=== PATIENT | female | born 1965 | race Caucasian/White ===

== ENCOUNTER 2020-07-01 07:40 | Outpatient (CLI) | payer MEDICARE, SELFPAY ==
--- NOTE | ~2020-07-01 | PE_ITS ---
EXAMINATION: PET skull to mid thigh DATE: 07/01/2020 10:11 INDICATION: Lung cancer TECHNIQUE: Blood glucose level was 97 mg/dL. 9.861 mCi of 18-fluorodeoxyglucose (18-FDG) was administ ered i.v. Low dose computed tomography (CT) images were acquired from the base of the brain to the pr oximal thighs for attenuation correction and anatomic localization. Positron emission tomography (PET ) images were acquired in the same distribution beginning 64 minutes after injection. The dose-length product (DLP) was 243.40 mGy-cm. COMPARISON: None FINDINGS: Head/neck: No abnormal FDG uptake is identified. FDG activity in the oral cavity and vocal cords with out suspicious CT correlate is likely physiologic. Chest: There is a 3.9 x 3.5 cm mass of the left upper lobe with abnormal FDG uptake and SUV max of 16 .1. There there are matted aorticopulmonary lymph nodes with abnormal FDG uptake and SUV max of 3.3. There is mild FDG uptake at the left hilum. Discrete lymph nodes are difficult to identify in the abs ence of intravenous contrast. There is subpleural groundglass opacity in the right lower lobe without abnormal FDG uptake. Mild emphysema is noted. The heart size is normal. There is no pleural effusion or pneumothorax. There is dependent atelectasis of the left lower lobe. Abdomen/pelvis/proximal thighs: Physiologic FDG activity is present in the bowel and urinary tract. N o abnormal FDG uptake is identified. The gallbladder is surgically absent. The liver, spleen, pancrea s, and adrenal glands are normal. There is punctate nonobstructing nephrolithiasis of the left kidney . The right kidney is unremarkable. There is calcified atherosclerosis of the aorta and many of the o ther arteries. No pathologically enlarged abdominal or pelvic lymph nodes are identified. There is no free intraperitoneal gas or evidence of bowel obstruction. Musculoskeletal: No abnormal FDG uptake is identified. There is moderate lumbar spondylosis at L5-S1. IMPRESSION: 1. Left upper lobe mass with abnormal FDG uptake, consistent with history of lung cancer. 2. Matted aortopulmonary window lymph nodes and left hilar lymph nodes with increased FDG uptake, con sistent with metastatic disease. Reviewed, dictated and finalized at location A. IMPRESSION: 1. Left upper lobe mass with abnormal FDG uptake, consistent with history of doyle ng cancer. 2. Matted aortopulmonary window lymph nodes and left hilar lymph nodes with inc reased FDG uptake, consistent with metastatic disease.
[2020-07-01 08:07] LABS: Glucose Point of Care 97 (65-105)
== END 2020-07-01 07:41 | disposition home or self-care (01) ==
LOC: ANHIMG 07:48
PROVIDERS: PCP Family Medicine; Visit Provider Internal Medicine Hematology & Oncology
DX: C34.12 Malignant neoplasm of upper lobe, left bronchus or lung (principal)
CPT/HCPCS: 78815; A9552

== ENCOUNTER 2020-07-15 03:04 | Outpatient (CLI) | payer MEDICARE, SELFPAY ==
[2020-07-15 18:37] LABS: SARS-CoV-2 RNA PCR Negative
== END 2020-07-15 03:05 | disposition home or self-care (01) ==
LOC: ANHCOVIDDT 03:06
PROVIDERS: Visit Provider Surgery
DX: Z01.812 Encounter for preprocedural laboratory examination (principal); Z20.828 Contact with and (suspected) exposure to other viral communicable diseases
CPT/HCPCS: 87635; C9803; U0003

== ENCOUNTER 2020-07-15 08:00 | Outpatient (CLI) | payer MEDICARE, SELFPAY ==
--- NOTE | 2020-07-15 08:20 | ECG_ITS ---
Measurements Intervals [place] Rate: 75 P: 73 AK: 134 QRS: 99 QRSD: 86 T: 72 QT: 366 QTc: 411 Interpretive Statements SINUS RHYTHM RIGHT AXIS DEVIATION DELAYED PRECORDIAL R/S TRANSITION BASELINE WANDER- II, III, AVR, AVL, AVF, V6 BORDERLINE ECG Electronically Signed On 07-15-2020 8:40:17 CDT by Raudel Caraballo D.O.
[2020-07-15 08:29] LABS: Basophils Absolute Auto 0.1 K/mm3 (0.0-0.1); Basophils Percent Auto 0.8 % (0.2-1.2); Eosinophils Absolute Auto 0.3 K/mm3 (0-0.3); Hematocrit 39.3 % (37.0-47.0); Hemoglobin 12.3 g/dL (12.0-15.0); Immature Granulocyte Absolute 0.02 K/mm3 (0.00-0.031); Immature Granulocyte Percent A 0.3 % (0-0.5); Lymphocytes Absolute Auto 1.94 K/mm3 (0.9-3.2); Lymphocytes Percent Auto 25.3 % (18.3-44.2); Mean Corpuscular HGB Conc 31.3 g/dl (32-36); Mean Corpuscular Hemoglobin 31.1 pg (26-34); Mean Corpuscular Volume 99.5 fl (80-100); Mean Platelet Volume 9.3 fl (7.4-10.4); Monocytes Absolute Auto 0.7 K/mm3 (0.1-0.6); Monocytes Percent Auto 9.6 % (2.6-8.5); Neutrophils Absolute Auto 4.6 K/mm3 (1.3-6.7); Platelet Count Result 235 k/mm3 (150-375); Red Blood Count 3.95 M/mm3 (4.2-5.4); Red Cell Distribution Width 13.9 % (11.5-14.5); White Blood Count 7.7 K/mm3 (4.5-10.0)
[2020-07-15 08:39] LABS: INR 0.9; Prothrombin Time 11.5 Seconds (11.1-14.7)
[2020-07-15 08:40] LABS: Partial Thromboplastin Time 25.8 SECONDS (22.3-36.8)
== END 2020-07-15 08:01 | disposition home or self-care (01) ==
PROVIDERS: PCP Family Medicine; Referring Provider Anesthesiology; Visit Provider Surgery
DX: Z01.818 Encounter for other preprocedural examination (principal); C34.12 Malignant neoplasm of upper lobe, left bronchus or lung; Z87.891 Personal history of nicotine dependence
CPT/HCPCS: 36415; 85025; 85610; 85730; 93005

== ENCOUNTER 2020-07-17 01:09 | Day surgery (SDC) | payer MEDICARE, SELFPAY ==
[2020-07-09 15:35] VITALS: BMI 20.3
--- NOTE | ~2020-07-17 | XR_ITS ---
EXAMINATION: XR chest port-a-cath/central DATE: 07/17/2020 08:35 INDICATION: Port catheter insertion TECHNIQUE: frontal view of the chest was obtained. COMPARISON: Chest radiograph dated 09/11/2019 FINDINGS: Interval placement of a right subclavian central venous port catheter with distal tip in the caudal s uperior vena cava. There is undulation in the course of the catheter were passed between the anterior right first rib and clavicle. There is suggestion of very subtle flattening of the catheter at this location. Interval increase in size of a mass in the left lung consistent with progressing primary br onchogenic carcinoma. Remainder of the lungs are clear with no other airspace opacities, pulmonary ed rob, pleural effusion or pneumothorax. The cardiomediastinal silhouette is normal. Visualized bones a nd soft tissues are unremarkable. IMPRESSION: 1. New right internal jugular central venous port catheter with distal tip in the caudal superior natacha a cava. There is suggestion of subtle flattening of the catheter where it passes between the anterior right first rib and clavicle which can predispose towards pinch off with catheter fracture and embol ization. 2. Enlarging mass in the left midlung consistent with progressing primary bronchogenic carcinoma. Reviewed, dictated and finalized at location B. IMPRESSION: 1. New right internal jugular central venous port catheter with distal tip in t he caudal superior vena cava. There is suggestion of subtle flattening of the c atheter where it passes between the anterior right first rib and clavicle which can predispose towards pinch off with catheter fracture and embolization. 2. Enlarging mass in the left midlung consistent with progressing primary bronc hogenic carcinoma.
--- NOTE | ~2020-07-17 | XR_ITS ---
EXAMINATION: XR fl guide central line place DATE: 07/17/2020 08:15 INDICATION: Port catheter insertion TECHNIQUE: One fluoroscopic spot image of the chest were obtained during procedure performed by Dr. Yanique frazier. Radiologist was not present for the imaging or procedure. The amount of fluoroscopy time used d uring this procedure was 0.4 minutes. COMPARISON: 09/11/2019 FINDINGS: Interval placement of a right subclavian central venous port catheter with distal tip at the caudal s uperior vena cava. The catheter has a subtle undulation in course as it passes between the first rib and clavicle but with no evident sharp kink or flattening. Visualized portions of the lungs are clear . IMPRESSION: 1. Fluoroscopy utilized during right subclavian central venous port catheter placement. Reviewed, dictated and finalized at location B. IMPRESSION: 1. Fluoroscopy utilized during right subclavian central venous port catheter pl acement.
[2020-07-17 06:16] VITALS: BP 109/75; PULSE 97; RESP 20; TEMP 36.8; O2SAT 97
[2020-07-17] MEDS: LACTATED RINGERS 1,000 ML 30 ML IV CONT (06:30)
[2020-07-17] MEDS: KETOROLAC 15 MG/ML VIAL (*BKC) IV PUSH (06:34)
--- NOTE | 2020-07-17 06:52 | WPDANESEPPF ---
Anes - Initial Pre Proc Eval Procedure: Operation Date: 07/17/20 07:30 Proposed Procedures p Insertion Angelica Cath - Jacki Crawford MD Date/Time: 07/17/20 06:52 Surgeon: Jacki Crawford MD Pre Op Diagnosis: Left Lung Cancer Patient Data Age: 55 Gender: F Height: 5 ft 5.5 in Weight: 56.25 kg Allergies Allergy/AdvReac Type Severity Reaction Status Date / Time No Known Allergies Allergy Unverified 07/17/20 06:27 Home Medications Medication Instructions Recorded Confirmed Type lamotrigine 100 mg tablet 100 mg PO BID 11/02/19 07/17/20 History quetiapine 200 mg tablet 200 mg PO BID 11/02/19 07/17/20 History quetiapine 400 mg tablet 400 mg PO DAILY tablet 11/02/19 07/17/20 History albuterol sulfate 2 puff INHALATION Q4H PRN 07/09/20 07/17/20 History hydrocodone-acetaminophen 1 tablet PO Q4H PRN 07/09/20 07/17/20 History vit C-vit B0-N-hxiu-elderberry 1 tablet PO DAILY 07/09/20 07/17/20 History [Airborne Vits Zinc Elderberry] Patient hx anesthesia problems: none Family hx anesthesia problems: none PMFSH Past Medical History Medical History Bipolar 1 disorder COPD (chronic obstructive pulmonary disease) Surgical History Surgical History (Updated 07/17/20 @ 06:52 by Krishna Tobin MD) History of cholecystectomy Family History Family History Mother Hypertension Lung cancer Father Lung cancer Social History Social History Smoking packs per day: 1 Smoking cigarettes per day: 20.0 Years smoked: 42 Smoking pack-years: 42.00 Smoking status: Current some day smoker Tobacco type: cigarettes Alcohol intake: current Substance use: current Substance use type: marijuana Gender identity (if verbalized by the patient): Female Spiritual care concerns: No Anes - Eval Final PreProcedure Day of Procedure 07/17/20 06:52 Patient weight: normal Heart: regular rate and rhythm Lungs: decreased breath sounds Airway: Mallampati scale class II Neurological: alert and oriented Last oral intake: >/= 8 hours ASA classification: IV Emergent: no Anesthetic plan: proceed Anesthesia type and monitoring: general GIVS and standard monitoring Informed Consent: The patient's anesthetic plan and its attendant risks and benefits were discussed with the patient/family/POA. Questions were solicited and answers provided to the satisfaction of the patient/family/POA.
--- NOTE | 2020-07-17 07:22 | PM.IMHP ---
H&P: HPI History of Present Illness Date/Time: 07/17/20 07:22 Chief complaint: Left Lung Cancer Narrative: Jonathon Pacheco is a 55 year old female presenting c left lung cancer c mets to lymph nodes. Pt is undergoing chemoradiation per oncology. Pt denies any previous central vein catherterization. Pt to begin chemotx tomorrow. Review of Systems Constitutional: Constitutional: Denies body ache(s), Denies chills, Reports fatigue, Reports lethargy and Reports weakness Eyes: Eyes: Reports no additional eye complaints ENT: Reports Normal hearing present and Denies dysphagia Cardiovascular: Cardiovascular: Denies chest pain and Denies palpitations Respiratory: Respiratory: Denies chest congestion, Reports cough, Reports hemoptysis, Reports dyspnea, Reports dyspnea on exertion and Reports wheezing Gastrointestinal: Gastrointestinal: Denies abdominal pain, Denies bloating, Denies constipation, Denies diarrhea, Denies nausea and Denies vomiting Genitourinary: Genitourinary: Reports no additional female genitourinary complaints Musculoskeletal: Musculoskeletal: Reports no additional musculoskeletal complaints Integumentary/Breasts: Skin/Breast: Reports system reviewed and no additional complaints, except as docu Neurologic: Reports system reviewed and no additional complaints, except as documented Psychiatric: Psychiatric: Reports no additional psychiatric complaints PMFSH Past Medical History Medical History Bipolar 1 disorder COPD (chronic obstructive pulmonary disease) Surgical History Surgical History History of cholecystectomy Family History Family History Mother Hypertension Lung cancer Father Lung cancer Social History Social History Smoking packs per day: 1 Smoking cigarettes per day: 20.0 Years smoked: 42 Smoking pack-years: 42.00 Smoking status: Current some day smoker Tobacco type: cigarettes Alcohol intake: current Substance use: current Substance use type: marijuana Gender identity (if verbalized by the patient): Female Spiritual care concerns: No Meds Home Medications and Allergies Home Medications Medication Instructions Recorded Confirmed Type lamotrigine 100 mg tablet 100 mg PO BID 11/02/19 07/17/20 History quetiapine 200 mg tablet 200 mg PO BID 11/02/19 07/17/20 History quetiapine 400 mg tablet 400 mg PO DAILY tablet 11/02/19 07/17/20 History albuterol sulfate 2 puff INHALATION Q4H PRN 07/09/20 07/17/20 History hydrocodone-acetaminophen 1 tablet PO Q4H PRN 07/09/20 07/17/20 History vit C-vit A4-Y-majj-elderberry 1 tablet PO DAILY 07/09/20 07/17/20 History [Airborne Vits Zinc Elderberry] Allergies Allergy/AdvReac Type Severity Reaction Status Date / Time No Known Allergies Allergy Unverified 07/17/20 06:27 Exam Const: General: no acute distress HENMT: Mouth: Yes moist mucous membranes Eyes: General: appearance normal, both eyes and all related structures Pupils: Equal, round and reactive pupils present EOM: EOMs intact bilaterally Neck: Neck: supple and no JVD Lymphatic: lymphadenopathy not noted Resp: Auscultation: diminished lung sounds Cardio: Rate: regular rate Rhythm: regular rhythm GI: Inspection: non-distended GI Palp: Yes Soft to palpation, No Firmness to palpation present (GI), No Tenderness to palpation present (GI), No Guarding due to palpation present (GI) and No Hernia present Skin: General skin exam: normal color and no rashes or lesions noted Neuro: Speech: normal speech Motor exam (neuro): 5/5 motor strength present throughout Extrem: General: normal to inspection Psych: Mental Status: mental status grossly normal Assessment and Plan Assessment and plan (1) Malignant neoplasm of upper lobe, left b
--- NOTE | 2020-07-17 07:30 | WPDHPUPDATE1 ---
History and Physical Update Update Date/Time: 07/17/20 07:30 History and Physical has been reviewed, including an updated exam of the patient. There are NO changes in the patient's condition. Risks, benefits, and alternatives have been discussed and questions answered. Patient agrees to proceed with procedure.
[2020-07-17] MEDS: ceFAZolin 2 GM/D5W 50 ML 2 GM/50 ML BAG IVPB (07:35)
[2020-07-17] MEDS: BUPIVACAINE/EPINEPHRINE 0.5% 30 ML VIAL INFILTRATE (08:02)
[2020-07-17] MEDS: HEPARIN SODIUM 5,000 UNITS/ML VIAL 5000 UNITS IRRIGATION (08:04)
[2020-07-17] MEDS: HEPARIN SODIUM, PORCINE 10,000 UNITS/10 ML VIAL 10000 UNITS IRRIGATION (08:05)
--- NOTE | 2020-07-17 08:21 | P.OP_ITS ---
Procedure Note - Detailed Date of procedure: 07/17/20 Pre-op diagnosis: Left Lung Cancer Post-op diagnosis: same Procedure performed: placement of right subclavian venous access device under fluroscopic guidance Description of procedure: Patient was brought into the operating room and placed in the supine position. After adequate induction of mac anesthesia, the patient was prepped and draped in normal sterile fashion. Time-out was then done to verify the patient's identity, as well as the procedure being performed. I began by making a small incision in the right chest, I then gained access into the right subclavian vein with an 18 gauge needle. I then placed the guidewire into the vein and confirmed placement via fluoroscopic guidance. I then locally anesthetized the area in the right chest. I then enlarged the incision around the guidewire including making a subcutaneous pocket inferiorly to allow placement of the port itself. I then placed a dilating sheath over the guidewire into the right subclavian vein via sterile Seldinger technique. This was once again done and confirmed via fluoroscopic guidance. I then removed the dilator and the guidewire, now just leaving the sheath in the vein. I then fed the previously flushed catheter into the right subclavian vein under fluoroscopic guidance. At approximately 16 cm, the catheter was noted to be near the atrial caval junction. I then peeled away the sheath, now just leaving the catheter in the vein. I then was able to easily draw and flush from the catheter. The catheter was cut to fit and attached to the port itself. The port was placed into the previously made subcutaneous pocket and sutured in with 0 Ethibond suture. Final fluoroscopic view showed the termination of the catheter at the atrial caval junction with a nice smooth curvature back to the port itself. I was able to gain access to the port with a Stover needle and was able to easily draw and flush from the port. I then flushed 4 cc of a final heparin flush into the port. The incision was closed with 3 0 Vicryl suture in the subcutaneous tissue and the skin was closed with 4 O Monocryl subcuticular suture. Dermabond was then placed on wound. The patient tolerated the procedur e well and will be sent to the recovery room in stable condition. Implants: R SCV VAD Anesthesia: MAC and local Surgeon: Jacki Crawford MD Estimated blood loss (mL): 5 Drains: No Packing: No Pathology: none sent Complications: No immediate complications Condition: stable Disposition: PACU Findings: placement of R SCV VAD via 1st stick
[2020-07-17 08:25] VITALS: BP 113/68; PULSE 89; RESP 20; O2SAT 98
[2020-07-17 08:55] VITALS: BP 113/68; PULSE 89; RESP 20; O2SAT 98
[2020-07-17 09:25] VITALS: BP 110/70; PULSE 88; RESP 14; O2SAT 92
[2020-07-17 09:55] VITALS: BP 105/66; PULSE 82; RESP 14; O2SAT 97
== END 2020-07-17 10:05 | disposition home or self-care (01) ==
PROVIDERS: PCP Family Medicine; Visit Provider Surgery
PROC: (CPT 36561; principal; 2020-07-17 07:30)
DX: C34.12 Malignant neoplasm of upper lobe, left bronchus or lung (principal); C77.9 Secondary and unspecified malignant neoplasm of lymph node, unspecified; J44.9 Chronic obstructive pulmonary disease, unspecified; F31.9 Bipolar disorder, unspecified; F17.210 Nicotine dependence, cigarettes, uncomplicated; F12.90 Cannabis use, unspecified, uncomplicated
CPT/HCPCS: 36561; 77001; C1788; J0690; J1644; J1885; J2250; J3010; J7030; J7120

== ENCOUNTER 2020-07-28 10:53 | Outpatient (CLI) | payer MEDICARE, SELFPAY ==
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
== END 2020-07-28 10:54 | disposition home or self-care (01) ==
LOC: ANHIMG 10:58
PROVIDERS: PCP Family Medicine; Visit Provider Internal Medicine Hematology & Oncology
DX: C34.12 Malignant neoplasm of upper lobe, left bronchus or lung (principal)
CPT/HCPCS: 36598; Q9966

== ENCOUNTER 2020-10-03 13:56 | Inpatient (IN) | payer MEDICARE, SELFPAY ==
[2020-10-03] VITALS (14 sets, daily range): BP systolic 107–144; BP diastolic 61–83; PULSE 100–124; RESP 14–29; TEMP 36–36.2; O2SAT 80–98; BMI 16.6
--- NOTE | ~2020-10-03 | US_ITS ---
EXAMINATION: US venous doppler LE EXAM DATE: 10/04/2020 11:27 INDICATION: Bilateral leg pain. TECHNIQUE: Multiple grayscale, color flow and Doppler images of the lower extremity deep venous syste ms bilaterally were obtained and reviewed. There is no prior study for comparison. FINDINGS: Right side: The right common femoral, femoral and profunda veins demonstrate normal color flow, respi ratory variation, augmentation and compressibility. Compressibility, color flow confirmed within the right popliteal, posterior tibial, peroneal, and greater saphenous veins. Left side: The left common femoral, femoral and profunda veins demonstrate normal color flow, respira tory variation, augmentation and compressibility. Compressibility, color flow confirmed within the l eft popliteal, posterior tibial, peroneal, and greater saphenous veins. IMPRESSION: 1. No lower extremity deep venous thrombosis bilaterally. Reviewed, dictated and finalized at location A. OR SOLUTIONS ENGINEER
--- NOTE | ~2020-10-03 | CT_ITS ---
EXAMINATION: CTA chest PE protocol DATE: 10/03/2020 16:52 INDICATION: Shortness of breath. Low oxygen saturation. History of lung cancer. TECHNIQUE: Computed tomography angiography (CTA) of the chest was performed with 100 mL Omnipaque-350 intravenous contrast timed to evaluate the pulmonary arteries. Coronal maximum intensity projection 3D-reconstructions were created by the technologist. Automated exposure control and iterative reconst ruction technique were employed. Exam dose: 165.73 mGy-cm total exam DLP. COMPARISON: 10/03/2020 portable AP chest 07/01/2028 PET/CT scan FINDINGS: There is diagnostic contrast enhancement of the pulmonary arteries. Pulmonary emboli are identified in the right interlobar and right lower lobe segmental pulmonary jose roberto alber. Peripheral left lower lobe pulmonary emboli are suggested in addition. No thoracic aortic aneurysm or dissection. There is thoracic and abdominal aortic atherosclerotic martha cification as well as great vessel calcification. No hilar or mediastinal mass lesion or lymphadenopathy. Right Port-A-Cath catheter is present, with catheter tip overlying the superior vena cava. Prominent emphysematous changes are noted. Irregular up to 2.7 cm lingular soft tissue mass consistent with known carcinoma of the lung. There are couple focal areas of linear scarring in the posterior medial right upper lobe. Focal tree- in-bud infiltrate in the posterior right lower lobe may represent focal infectious process or postinf ectious residual. There is linear atelectasis or scarring of the middle lobe and to a mild extent the lower lobes. No adrenal mass lesion is noted. Status post cholecystectomy. No suspicious osteolytic or osteoblastic lesions are noted. IMPRESSION: Mild pulmonary embolism involving right lower lobe and probable small peripheral left lo wer lobe emboli Emphysema Lingular carcinoma Right Port-A-Cath There are scattered bilateral areas of atelectasis and/or scarring and a focal tree-in-bud infiltrate in the posterior right lower lobe, which might represent focal infectious process or postinfectious residual Dr. Pedroza telephoned the report to emergency room physician on 10/03/2020 1713 hours. Reviewed, dictated and finalized at [facility]. Reviewed, dictated and finalized at location B. TURBINE ERECTOR IMPRESSION: Mild pulmonary embolism involving right lower lobe and probable sm all peripheral left lower lobe emboli Emphysema Lingular carcinoma Right Port-A-Cath There are scattered bilateral areas of atelectasis and/or scarring and a focal tree-in-bud infiltrate in the posterior right lower lobe, which might represent focal infectious process or postinfectious residual Dr. Pedroza telephoned the report to emergency room physician on 2019 1713 hours.
--- NOTE | ~2020-10-03 | XR_ITS ---
XR chest 1V portable DATE: 10/03/2020 14:50 INDICATION: Shortness of breath; recently diagnosed with cancer. TECHNIQUE: Portable AP chest on 10/03/2020 at 1449 hours COMPARISON: 07/28/2020 portable AP chest 07/17/2020 portable AP chest 09/11/2019 PA and lateral chest FINDINGS: There is an ill-defined irregular soft tissue opacity overlying the left midlung laterally, corresponding to the previously reported mass in similar location on 09/11/2019. The lungs are hyperinflated with relative flattening of the diaphragm, consistent with COPD. Right Port-A-Cath catheter tip overlies the superior vena cava. There appears to be some kinking of t he catheter in the medial infraclavicular area. No pneumothorax. No pleural effusion. No pulmonary co nsolidation. Heart size appears normal. There is aortic arch calcification. Prominent diffuse osteopenia. IMPRESSION: Right Port-A-Cath catheter tip overlying superior vena cava; suggestion of some kinking i n the medial infraclavicular area Defined mass density, lateral left midlung; history of carcinoma of the lung COPD Reviewed, dictated and finalized at location B. CAN STUDIES PROFESSOR IMPRESSION: Right Port-A-Cath catheter tip overlying superior vena cava; sugges tion of some kinking in the medial infraclavicular area Defined mass density, lateral left midlung; history of carcinoma of the lung COPD
[2020-10-03 14:32] LABS: Alveolar/Arterial O2 Gradient 81.4 mmHg; Base Excess ABG 24.8 mEq/l (+/-2.0); Fractional Inspired Oxygen 40 %; HCO3 ABG 58.2 mEq/l (22.0-26.0); Oxyhemoglobin 73.4 % THb (90.0-100.0); PO2 FiO2 Ratio Arterial Blood 1.15 %; Total Hemoglobin 11.6 g/dL (12.0-18.0)
[2020-10-03 14:38] LABS: PCO2 ABG 137.3 mmHg (35.0-45.0); pH ABG 7.245 (7.350-7.450)
[2020-10-03 14:39] LABS: Device NASAL CANNULA; Modified Allen's Test Pass; Oxygen Saturation ABG 68.8 % (95.0-100.0); PO2 ABG 45.9 mmHg (80.0-100.0); Site Drawn LEFT RADIAL
--- NOTE | 2020-10-03 14:43 | PC.NURSE ---
Respiratory at bedside.
[2020-10-03 14:44] LABS: Basophils Percent Auto 0.5 % (0.2-1.2); Eosinophils Percent Auto 0.2 % (0-4.4); Hematocrit 34.2 % (37.0-47.0); Hemoglobin 10.7 g/dL (12.0-15.0); Immature Granulocyte Absolute 0.02 K/mm3 (0.00-0.031); Immature Granulocyte Percent A 0.3 % (0-0.5); Lymphocytes Absolute Auto 0.42 K/mm3 (0.9-3.2); Lymphocytes Percent Auto 6.7 % (18.3-44.2); Mean Corpuscular HGB Conc 31.3 g/dl (32-36); Mean Corpuscular Hemoglobin 34.2 pg (26-34); Mean Corpuscular Volume 109.3 fl (80-100); Mean Platelet Volume 9.4 fl (7.4-10.4); Monocytes Absolute Auto 0.3 K/mm3 (0.1-0.6); Neutrophils Absolute Auto 5.6 K/mm3 (1.3-6.7); Neutrophils Percent Auto 88.3 % (45.5-73.1); Platelet Count Result 191 k/mm3 (150-375); Red Blood Count 3.13 M/mm3 (4.2-5.4); Red Cell Distribution Width 16.5 % (11.5-14.5); White Blood Count 6.3 K/mm3 (4.5-10.0)
[2020-10-03 14:57] LABS: INR 0.8; Prothrombin Time 11.6 Seconds (11.1-14.7)
[2020-10-03 14:58] LABS: Anion Gap 11.99999 mmol/L (8-16); Blood Urea Nitrogen 14 mg/dL (7-17); Calcium 9.9 mg/dL (8.4-10.2); Carbon Dioxide > 40 mmol/L (22-30); Chloride 89 mmol/L (98-107); Estimated CRCL calculation 96 ml/min; Estimated Glomerular Filt Rate > 60; Glucose 136 mg/dL (65-105); Partial Thromboplastin Time 24.1 SECONDS (22.3-36.8); Potassium 4.7 mmol/L (3.4-5.0); Sodium 141 mmol/L (137-145)
[2020-10-03 15:05] LABS: NT Pro B Type Natriuretic Pept 100 PG/ML (5-100)
[2020-10-03 15:08] LABS: Troponin I 0.015 ng/mL (0.000-0.034)
--- NOTE | 2020-10-03 15:19 | ED.SOB ---
HPI - SOB/Dyspnea General Chief Complaint: Shortness of Breath/Dyspnea Stated Complaint: pulse ox low History of Present Illness HPI Narrative: Patient is a 55-year-old female who presents ER with shortness of breath. She went to have her chemotherapy today which she has not had 2 weeks. She received her chemo but it was discovered her blood oxygen level was 70%. Family reports patient has been more sleepy over the last couple weeks and more short of breath. No fever/chills/sweats/productive cough. Denies chest pain or chest pressure. Not typically oxygen dependent. Related Data Home Medications Medication Instructions Recorded Confirmed lamotrigine 100 mg tablet 100 mg PO BID 11/02/19 10/03/20 quetiapine 200 mg tablet 200 mg PO BID 11/02/19 10/03/20 quetiapine 400 mg tablet 400 mg PO DAILY tablet 11/02/19 10/03/20 hydrocodone-acetaminophen 1 tablet PO Q4H PRN 07/09/20 10/03/20 Daily Vitamin See Rx Instructions .ROUTE .COMPLEX 09/04/20 10/03/20 alprazolam [Xanax] 1 mg PO BID PRN 10/03/20 10/03/20 Allergies Allergy/AdvReac Type Severity Reaction Status Date / Time No Known Allergies Allergy Unverified 10/03/20 18:34 Review of Systems Review of Systems: All systems reviewed & are unremarkable except as noted in HPI and below Constitutional: Constitutional: Denies chills, Denies fever(s) and Reports weakness ENT: Denies nasal congestion and Denies sore throat Cardiovascular: Cardiovascular: Denies chest pain, Denies rapid heart rate and Denies radiating jaw, neck or arm pain Respiratory: Respiratory: Denies cough, Reports dyspnea and Denies wheezing Gastrointestinal: Gastrointestinal: Denies abdominal pain, Denies nausea and Denies vomiting Neurologic: Denies headache(s) [facility] Past Medical History Medical History (Updated 10/03/20 @ 23:22 by Brant Todd MD) Anxiety and depression Bipolar 1 disorder COPD (chronic obstructive pulmonary disease) Malignant neoplasm of upper lobe, left bronchus or lung Surgical History Surgical History (Updated 07/22/20 @ 11:12 by Tabitha Saravia MD) History of cholecystectomy Family History Family History Mother Lung cancer Hypertension Father Lung cancer Sibling Ovarian cancer Social History Social History (Updated 10/03/20 @ 21:57 by Lisa Cedillo NP) Social History: The patient is and she is disabled. The patient was smoking 2 packs of cigarettes a day and smoked for 41 years. The patient stated she recently quit smoking. She occasionally has an alcoholic beverage. She uses marijuana but no illicit drugs. Patient is a DNR and her sister knows what she wants. Although she did not say that her sister was officially the power mergers and acquisitions attorney. The patient has 1 son. The patient stated when it is time she will be ready to go to hospice. Smoking packs per day: 2 Smoking cigarettes per day: 40.0 Years smoked: 40 Smoking pack-years: 80.00 Smoking status: Heavy tobacco smoker Tobacco type: cigarettes Alcohol intake: current Substance use: current Substance use type: marijuana Other substance usage details: [employer] Occupation/Education: other Gender identity (if verbalized by the patient): Female Spiritual care concerns: No Exam Narrative: Exam Narrative: GENERAL: Chronically ill-appearing, thin, and falls asleep if not talking. HEAD: Normocephalic, atraumatic. ENT: Mucous membranes moist. CHEST: Clear to auscultation. No respiratory distress. HEART: Tachycardic and regular. Normal peripheral pulses. ABDOMEN: Soft, nontender, nondistended. EXTREMITIES: Normal range of motion. No edema. SKIN: Warm, dry, no rash. NEURO: Alert and oriented x3. PSYCH: Normal mood and affect. Course Course Emergency Course: Admit to the hospitalist service. Patient is consented to try BiPAP. She is a DNR/DNI and if her ABG is worsening and she is failing BiP
--- NOTE | 2020-10-03 15:28 | PC.NURSE ---
RT at bedside for Bi-Pap.
[2020-10-03 15:37] LABS: D Dimer 1.97 ug/mL (<0.48)
--- NOTE | 2020-10-03 16:00 | ECG_ITS ---
Measurements Intervals [place] Rate: 121 P: 84 [place]: 104 QRS: 105 QRSD: 93 T: 51 QT: 284 QTc: 404 Interpretive Statements SINUS TACHYCARDIA WITH SHORT CA INTERVAL RIGHT AXIS DEVIATION DELAYED PRECORDIAL R/S TRANSITION MINIMAL Q WAVES- INFERIOR LEADS BASELINE WANDER- I, II, AVR, AVL, AVF, V2, V6 ABNORMAL ECG Electronically Signed On 10-03-2020 18:06:09 [employer] by Raudel Caraballo D.O.
--- NOTE | 2020-10-03 16:14 | PC.NURSE ---
Pt to CT. Taken off of BiPap and placed on 4L/NC O2 for transfer out of department. Will resume BiPap treatment when pt returns to room.
--- NOTE | 2020-10-03 16:23 | PC.NURSE ---
Pt to CT.
--- NOTE | 2020-10-03 17:30 | PC.NURSE ---
Dr. Anaya at bedside to discuss results with pt and family.
[2020-10-03] MEDS: HEPARIN SODIUM 5,000 UNITS/ML VIAL 4500 UNITS IV PUSH (17:36)
[2020-10-03] MEDS: HEPARIN SOD/D5W 100 UNITS/ML 25,000 UNITS/250 ML BAG 10 UNITS IV CONT (17:38)
--- NOTE | 2020-10-03 18:38 | PC.NURSE ---
No bed assignment yet per Cecilio SuarezJustice Court Judge
--- NOTE | 2020-10-03 18:40 | PC.NURSE ---
Pt resting on stretcher. Awaiting bed assignment for admission. Family at bedside. Call light within reach.
--- NOTE | 2020-10-03 20:35 | PC.NURSE ---
This patient, Jonathon Pacheco, was admitted to IMU Room 203-01. Patient/family oriented to hospital policies and general routines including ID bracelet, bed and alarms, visiting hours, pain management, procedures, bathroom and other care routines, personal items, smoking policy, room service/diet, and visiting hours. Information on how to activate the Rapid Response Team has been discussed. Patient/Family are encouraged to report perceived risks to care and to ask questions if they do not understand what they are told or what they should do.
--- NOTE | 2020-10-03 21:45 | PM.IMHP ---
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 The patient completed a course of definite chemo radiation therapy between 07/15/2020 and 08/28/2020. The patient has completed the radiation and is still undergoing chemotherapy. The patient believes that she just has 1 more chemotherapy treatment. She does have a Port-A-Cath. The patient went chemotherapy today but became hypoxic. The patient has chronic hypoxia and wears oxygen between 2 and 3 L at home. The patient had a portable oxygen tank that she plugs into her car and then she blocks into the wall. She said she ran out of battery and she plugged into her car but then when she got to chemotherapy she plugged into the wall which she had ran out of oxygen and they felt that she may just be having a hard time recovering. So the patient was taken to the emergency room. She said she had been complaining of having some leg pains in the past but never had any history of having any DVTs in the past. Her CTA was noted to have a mild pulmonary embolism involving the right lower lobe and probable small peripheral left lower lobe emboli. The patient was started on a heparin drip. She is on her routine oxygen that she takes at home 2-3 L. She initially was on a BiPAP machine but could not tolerated. The patient stated that she has a DNR she does not want to be put on any ventilators or any machines. The patient is tolerating her regular oxygen well and she is satting in the lower 90 percentile. On her chest x-ray looks like the Port-A-Cath tip overlying superior vena cava suggestion of some kinking in the medial infraclavicular area. Define mass density, lateral left midlung history of carcinoma of the lung. 10.7 and 34.2 which is her baseline. D-dimer noted to be 1.97. Initially her ABGs pH was 7.245 CO2 was 137.3 anterior O2 was 45.9. Patient was placed in inpatient status and admission date of service is 10/03/2020. Review of Systems Review of Systems: All systems reviewed & are unremarkable except as noted in HPI and below Constitutional: Constitutional: Reports as per HPI and Reports no additional constitutional complaints Eyes: Eyes: Reports as per HPI and Reports no additional eye complaints ENT: Reports system reviewed and no additional complaints, except as documented and Reports Normal hearing present Cardiovascular: Cardiovascular: Reports no additional cardiovascular complaints Respiratory: Respiratory: Reports no additional respiratory complaints and Reports no additional respiratory complaints Gastrointestinal: Gastrointestinal: Reports as per HPI and Reports no additional gastrointestinal complaints Musculoskeletal: Musculoskeletal: Reports no additional musculoskeletal complaints Integumentary/Breasts: Skin/Breast: Reports system reviewed and no additional complaints, except as docu and Reports as per HPI Neurologic: Reports system reviewed and no additional complaints, except as documented, Reports as per HPI and Reports Normal hearing present Psychiatric: Psychiatric: Reports no additional psychiatric complaints and Reports as per HPI Endocrine: Endocrine: Reports no additional endocrine complaints Hematologic/Lymphatic: Hematologic/Lymphatic: Reports no additional hematologic/lymphatic complaints Allergic/Immunologic: Allergic/Immunologic: Reports no additional allergic/immunologic complaints [facility] Past Medical History Medical History (Updated 10/03/20 @ 22:02 by Lisa Cedillo NP) Anxiety and depression Bipolar 1 disorder COPD (chronic obstructive pulmonary disease) Malignant neoplasm of upper lobe, left bronchus or lung Surgical History Surgical Histor
[2020-10-04] VITALS (13 sets, daily range): BP systolic 84–137; BP diastolic 46–82; PULSE 85–120; RESP 16–22; TEMP 36–37; O2SAT 91–98
--- NOTE | 2020-10-04 | ECHO_ITS ---
Patient Info Name: Jonathon Pacheco Age: 55 years : 1965 Gender: Female Ht: 65 in Wt: 101 lbs BSA: 1.44 m2 HR: 99 bpm BP: 137 / 82 mmHg Heart Rhythm: Sinus Rhythm Technical Quality: Good Exam Date: 10/04/2020 8:12 AM Exam Location: [facility] Pulmonary Exam Room: Patient Status: Inpatient Admit Date: 10/03/2020 Staff Ordering Physician: Lisa Cedillo NP Service Bar Cashier: Mariana Mendez RDCS Attending Provider: Yana Manuel MD Referring Physician: Nguyen CHAUHAN; Exam Type: CA echo doppler color flow Study Info Indications - pe Complete two-dimensional, color flow and Doppler transthoracic echocardiogram is performed. Summary 1. Complete two-dimensional, color flow and Doppler transthoracic echocardiogram is performed. 2. There is mild concentric increased left ventricular wall thickness. 3. Left ventricular systolic function is normal, estimated at 65-70%. 4. Right ventricular chamber dimension is mildly enlarged. 5. Interventricular septal flattening typical of right ventricular pressure overload. Left Ventricle Left ventricular chamber dimension is normal. Left ventricular systolic function is normal, estimated at 65-70%. There is mild concentric increased left ventricular wall thickness. The left ventricular diastolic function is grade I diastolic dysfunction. Right Ventricle Right ventricular chamber dimension is mildly enlarged. Left Atria Left atrial chamber dimension is normal. Right Atria Right atrial chamber dimension is normal. Aortic Valve The aortic valve is normal. Pulmonic Valve The pulmonic valve is normal. There is mild pulmonic regurgitation. Mitral Valve The mitral valve has normal leaflets. Tricuspid Valve The tricuspid valve leaflets are normal. There is mild tricuspid valve regurgitation. Pericardium/Pleural The pericardium appears normal. Aorta The aortic root size at the sinus of Valsalva is normal. Left Ventricular Outflow Tract Name Value Normal LVOT 2D LVOT Diameter 2.0 cm Pulmonic Valve Name Value Normal PV Doppler PV Peak Gradient 3 mmHg PV Regurgitation Doppler VT Peak End Diastolic Velocity 180 cm/s Mitral Valve Name Value Normal MV Doppler MV Decel [place] 320 cm/s2 MV PHT 55 ms MV Area (PHT) 4.0 cm2 4.0-5.0 MV Diastolic Function MV E Peak Velocity 60 cm/s MV A Peak Velocity
[2020-10-04 00:11] LABS: Partial Thromboplastin Time 61.4 SECONDS (22.3-36.8)
[2020-10-04] MEDS: HEPARIN SODIUM 5,000 UNITS/ML VIAL 2500 UNITS IV PUSH ×2 (00:19→14:08)
[2020-10-04 07:18] LABS: Basophils Percent Auto 0.4 % (0.2-1.2); Eosinophils Percent Auto 0.4 % (0-4.4); Hematocrit 30.9 % (37.0-47.0); Hemoglobin 9.9 g/dL (12.0-15.0); Immature Granulocyte Absolute 0.01 K/mm3 (0.00-0.031); Immature Granulocyte Percent A 0.2 % (0-0.5); Lymphocytes Absolute Auto 0.79 K/mm3 (0.9-3.2); Lymphocytes Percent Auto 17.6 % (18.3-44.2); Mean Corpuscular Hemoglobin 33.7 pg (26-34); Mean Corpuscular Volume 105.1 fl (80-100); Mean Platelet Volume 9.1 fl (7.4-10.4); Monocytes Absolute Auto 0.4 K/mm3 (0.1-0.6); Monocytes Percent Auto 8.9 % (2.6-8.5); Neutrophils Absolute Auto 3.3 K/mm3 (1.3-6.7); Neutrophils Percent Auto 72.5 % (45.5-73.1); Platelet Count Result 182 k/mm3 (150-375); Red Blood Count 2.94 M/mm3 (4.2-5.4); Red Cell Distribution Width 15.9 % (11.5-14.5); White Blood Count 4.5 K/mm3 (4.5-10.0)
[2020-10-04 07:29] LABS: Partial Thromboplastin Time 70.7 SECONDS (22.3-36.8)
[2020-10-04] MEDS: QUEtiapine FUMARATE 100 MG TABLET 200 MG PO ×2 (09:02→16:12)
[2020-10-04] MEDS: HYDROcodone/acetaminophen (*CRX) 5-325 MG TABLET 1 TAB PO (09:03)
[2020-10-04] MEDS: ALPRAZolam (*CRX) 0.5 MG TABLET 1 MG PO (09:15)
[2020-10-04] MEDS: lamoTRIgine 100 MG TABLET PO ×2 (09:16→16:13)
--- NOTE | 2020-10-04 10:14 | PC.NURSE ---
This patient, Jonathon Pacheco, was transferred to [[facility] ] on 10/04/20 at 10:02. Personal belongings sent with patient. Report given to [Stanislav ]. Appropriate documentation sent with patient. Pt transported on 2L [place]. A&O x 4. No distress noted.
--- NOTE | 2020-10-04 10:15 | PC.NURSE ---
This patient, Jonathon Pacheco, was received from IMU on 10/04/20 at 1015. Patient oriented to unit policies and routines. Report received from RAE Kaur.
--- NOTE | 2020-10-04 12:15 | PM.IMPN ---
Progress Note: A&P Assessment and Plan (1) Pulmonary emboli: Code(s): I26.99 - Other pulmonary embolism without acute cor pulmonale Status: Acute Assessment and Plan: The patient is currently on heparin drip. I explained that she probably could go home on oral anticoagulation, possibly as early as 10/05 . We will check an echo and venous Dopplers as well. Troponin was normal and small clot burden seen on CT. She said she had some complaints of leg cramps but no edema. (2) Anxiety and depression: Code(s): F41.9 - Anxiety disorder, unspecified; F32.9 - Major depressive disorder, single episode, unspecified Status: Chronic Assessment and Plan: Continue with her home medication of Xanax and Seroquel. (3) Malignant neoplasm of upper lobe, left bronchus or lung: Code(s): C34.12 - Malignant neoplasm of upper lobe, left bronchus or lung Status: Acute Assessment and Plan: The patient believes that she only has 1 more chemotherapy. She has completed her radiation. The patient is a DNR. She wears oxygen at home at 2-3 L. she will follow-up with her oncologist outpatient. The patient stated when she is ready she will go to hospice. Continue with her pain medication that she takes from home. (4) COPD (chronic obstructive pulmonary disease): Code(s): J44.9 - Chronic obstructive pulmonary disease, unspecified Status: Acute Assessment and Plan: Continue with albuterol inhaler in her chronic oxygen that she uses at home. (5) Bipolar 1 disorder: Code(s): F31.9 - Bipolar disorder, unspecified Status: Chronic Assessment and Plan: Continue with Seroquel, Lamictal, and Xanax. Subjective Date/time seen: 10/04/20 12:15 Interval history: Date of visit 10/04. 55-year-old white female with COPD on chronic home O2 undergoing chemotherapy and radiation for squamous cell carcinoma lung developed increasing hypoxia 10/03 at the [facility]. She was seen in the emergency room and CTA revealed small burden pulmonary emboli and was admitted for treatment. This a.m. she feels fairly comfortable, no more short of breath than usual, and complaining of being anxious and discomfort at her Port-A-Cath site which has been somewhat chronic. Exam Narrative: Exam Narrative: Blood pressure 120/66 pulse is 68 saturating 91% on 2 L nasal cannula afebrile Lungs decreased breath sounds no wheezing or consolidation CV regular rate rhythm no murmurs or gallops Abdomen soft nontender Extremities without edema dorsalis pedis posterior tibial 2+ Neuro alert with no focal deficits somewhat slow to respond at times Objective Data Vital Signs Vital Signs: Vital Signs - 24 hr 10/03/20 13:54 10/03/20 14:00 10/03/20 14:41 Temperature 36.2 C L Pulse Rate 124 H 122 H 122 H Respiratory Rate 14 20 Blood Pressure 118/77 144/71 H Pulse Oximetry 80 L 94 10/03/20 15:25 10/03/20 15:40 10/03/20 16:09 Temperature Pulse Rate 108 H 108 H Respiratory Rate 22 H 18 18 Blood Pressure 134/80 116/79 Pulse Oximetry 96 96 98 10/03/20 16:57 10/03/20 17:14 10/03/20 18:20 Temperature Pulse Rate 104 H 100 Respiratory Rate 29 H 22 H 18 Blood Pressure 129/83 Pulse Oximetry 96 98 95 10/03/20 18:40 10/03/20 20:00 10/03/20 21:21 Temperature 36.0 C L Pulse Rate 101 H 107 H 105 H Respiratory Rate 22 H 16 Blood Pressure 118/81 107/83 Pulse Oximetry 95 97 10/03/20 22:00 10/03/20 23:42 10/04/20 00:00 Temperature 36.0 C L Pulse Rate 109 H 109 H 107 H Respiratory Rate 14 Blood Pressure 107/61 Pulse Oximetry 97 97 10/04/20 02:00 10/04/20 03:58 10/04/20 04:00 Temperature 36.0 C L Pulse Rate 103 H 107 H 107 H Respiratory Rate 16 Blood Pressure 137/82 Pulse Oximetry 92 92 10/04/20 06:00 10/04/20 07:26 10/04/20 08:00 Temperature 36.6 C Pulse Rate 103 H 98 85 Respiratory Rate 16 Blood Pressure 119/67 Pulse Oximetry 91 91
[2020-10-04 13:32] LABS: Partial Thromboplastin Time 57.1 SECONDS (22.3-36.8)
[2020-10-04] MEDS: QUEtiapine FUMARATE 100 MG TABLET 400 MG PO (16:12)
[2020-10-04] MEDS: HEPARIN SOD/D5W 100 UNITS/ML 25,000 UNITS/250 ML BAG 12 UNITS IV CONT (17:19)
[2020-10-04] MEDS: SODIUM CHLORIDE 0.9% IV 500 ML IV CONT (17:59)
[2020-10-04] MEDS: SODIUM CHLORIDE 0.9% IV 500 ML 999 ML IV CONT (19:38)
[2020-10-05] VITALS: BP 101/61; PULSE 96; RESP 20; TEMP 36.5; O2SAT 99
[2020-10-05 02:41] LABS: Basophils Percent Auto 0.3 % (0.2-1.2); Eosinophils Percent Auto 0.8 % (0-4.4); Hemoglobin 9.3 g/dL (12.0-15.0); Immature Granulocyte Absolute 0.02 K/mm3 (0.00-0.031); Immature Granulocyte Percent A 0.5 % (0-0.5); Lymphocytes Absolute Auto 0.63 K/mm3 (0.9-3.2); Lymphocytes Percent Auto 16.2 % (18.3-44.2); Mean Corpuscular HGB Conc 32.1 g/dl (32-36); Mean Corpuscular Hemoglobin 34.1 pg (26-34); Mean Corpuscular Volume 106.2 fl (80-100); Mean Platelet Volume 9.9 fl (7.4-10.4); Monocytes Absolute Auto 0.3 K/mm3 (0.1-0.6); Monocytes Percent Auto 6.9 % (2.6-8.5); Neutrophils Absolute Auto 2.9 K/mm3 (1.3-6.7); Neutrophils Percent Auto 75.3 % (45.5-73.1); Platelet Count Result 145 k/mm3 (150-375); Red Blood Count 2.73 M/mm3 (4.2-5.4); Red Cell Distribution Width 16.1 % (11.5-14.5); White Blood Count 3.9 K/mm3 (4.5-10.0)
[2020-10-05 02:43] LABS: Partial Thromboplastin Time 73.4 SECONDS (22.3-36.8)
[2020-10-05 03:28] LABS: Anion Gap 9.99999 mmol/L (8-16); Blood Urea Nitrogen 17 mg/dL (7-17); Carbon Dioxide > 40 mmol/L (22-30); Chloride 89 mmol/L (98-107); Estimated CRCL calculation 67 ml/min; Estimated Glomerular Filt Rate > 60; Glucose 104 mg/dL (65-105); Potassium 4.3 mmol/L (3.4-5.0); Sodium 139 mmol/L (137-145)
[2020-10-05 04:00] VITALS: BP 127/70; PULSE 104; RESP 18; TEMP 36.2; O2SAT 96
[2020-10-05 08:00] VITALS: O2SAT 93
[2020-10-05] MEDS: RIVAROXABAN 15 MG TABLET PO (08:07)
[2020-10-05] MEDS: lamoTRIgine 100 MG TABLET PO (08:08)
[2020-10-05] MEDS: QUEtiapine FUMARATE 100 MG TABLET 200 MG PO (08:08)
[2020-10-05 09:54] VITALS: BP 95/59; PULSE 114; RESP 16; TEMP 37; O2SAT 95
[2020-10-05] MEDS: HEPARIN SOD FLUSH 500 UNITS/5 ML SYRINGE IV PUSH (11:25)
--- NOTE | 2020-10-05 18:19 | PM.DS ---
DS: Admitting Diagnosis Admitting Diagnosis Admitting Diagnosis: hypercapnic respiratory failure,pulmonary embolism DS: Discharge Diagnosis Discharge Diagnosis (1) Pulmonary emboli: Code(s): I26.99 - Other pulmonary embolism without acute cor pulmonale Status: Acute Assessment and Plan: The patient was placed on heparin drip and transitioned to Xarelto the morning of discharge.. Troponin was normal and small clot burden seen on CT. She said she had some complaints of leg cramps but no edema. And venous Doppler was negative for DVT. Echocardiogram showed mild right atrial and ventricular enlargement thought probably secondary to her COPD. (2) Anxiety and depression: Code(s): F41.9 - Anxiety disorder, unspecified; F32.9 - Major depressive disorder, single episode, unspecified Status: Chronic Assessment and Plan: Continue with her home medication of Xanax and Seroquel. (3) Malignant neoplasm of upper lobe, left bronchus or lung: Code(s): C34.12 - Malignant neoplasm of upper lobe, left bronchus or lung Status: Acute Assessment and Plan: The patient believes that she only has 1 more chemotherapy. She has completed her radiation. The patient is a DNR. She wears oxygen at home at 2-3 L. she will follow-up with her oncologist outpatient. (4) COPD (chronic obstructive pulmonary disease): Code(s): J44.9 - Chronic obstructive pulmonary disease, unspecified Status: Acute Assessment and Plan: Continue with albuterol inhaler in her chronic oxygen that she uses at home. O2 saturations did improve and we did not repeat a blood gas since she has done so much better Chronic CO2 retainer as evidence by the high CO2 under basic metabolic profile and tolerance of the high pCO2 (5) Bipolar 1 disorder: Code(s): F31.9 - Bipolar disorder, unspecified Status: Chronic Assessment and Plan: Continue with Seroquel, Lamictal, and Xanax. DS: Summary Hospital Course Hospital Course: 55-year-old white female COPD and chronic respiratory failure was found to be hypoxic at the infusion center and sent to the emergency room for evaluation. CTA revealed small right lower lobe emboli and probable left lower lobe emboli with small clot burden. With hypoxia though in CO2 retention she was admitted for IV heparin therapy. She steadily improved although would not wear BiPAP. She continued on IV heparin until discharge at which point she was transition to Xarelto which she will take 15 b.i.d. for 21 days and 20 daily. Venous Doppler was negative and the echocardiogram as stated below revealed mild right atrial and ventricular enlargement probable secondary to her COPD She is obvious a CO2 retainer with the high CO2 under basic. Time Spent with Patient Time attestation: Total time spent providing and/or coordinating discharge services: 35 minutes Exam Narrative: Exam Narrative: Condition on discharge Blood pressure 96/60 pulse is 110 respirations 16 per minute saturating 95% on 2 L nasal cannula Lungs prolonged expiratory phase distant breath sounds but no areas of consolidation CV tachy no murmurs Abdomen soft nontender no masses Extremities without edema good distal pulses Neuro alert cooperative up about taking a diet able to be discharged home in stable condition DS: Data Data Completed and Pending Labs on day of discharge: Labs from last 24 hours 10/05/20 10/05/20 10/05/20 02:08 02:08 02:08 WBC 3.9 L RBC 2.73 L Hgb 9.3 L Hct 29.0 L MCV 106.2 H MCH 34.1 H MCHC 32.1 RDW 16.1 H Plt Count 145 L MPV 9.9 Immature Gran % (Auto) 0.5 Neut % (Auto) 75.3 H Lymph % (Auto) 16.2 L [place] % (Auto) 6.9 Eos % (Auto) 0.8 Baso % (Auto) 0.3 Lymph # (Auto) 0.63 L [place] # (Auto) 0.3 Eos # (Auto) 0.0 Baso # (Auto) 0.0 Abs Immat Gran (auto) 0.02 Absolute Neuts (auto) 2.9 Absolute Nucleated RBC 0.0 Nucleate
== END 2020-10-05 11:55 | disposition home or self-care (01) | DRG 176 ==
LOC: ANHED 14:12 → ANHIMU 21:40 → ANH2MED 10-05 08:09 → ANHIMU 10-08 15:23
PROVIDERS: Family Medicine; Admitting Provider Family Medicine; Emergency Provider Emergency Medicine; PCP Family Medicine; Visit Provider Internal Medicine
DX: I26.99 Other pulmonary embolism without acute cor pulmonale (principal); C34.12 Malignant neoplasm of upper lobe, left bronchus or lung; J96.10 Chronic respiratory failure, unspecified whether with hypoxia or hypercapnia; Z99.81 Dependence on supplemental oxygen; Z23 Encounter for immunization; F31.9 Bipolar disorder, unspecified; F41.9 Anxiety disorder, unspecified; J44.9 Chronic obstructive pulmonary disease, unspecified; F17.210 Nicotine dependence, cigarettes, uncomplicated; Z66 Do not resuscitate; Z79.899 Other long term (current) drug therapy; Z92.3 Personal history of irradiation; Z95.828 Presence of other vascular implants and grafts
CPT/HCPCS: 36415; 36600; 71045; 71275; 80048; 80053; 82805; 83735; 83880; 84484; 85025; 85380; 85610; 85730; 87040; 93005; 93306; 93970; 94002; 96367; 96375; 96413; 99291; A9270; J1100; J1200; J1644; J2469; J7040; J7060; J9045; J9267; Q9967

== ENCOUNTER 2020-11-10 08:59 | Outpatient (CLI) | payer MEDICARE, SELFPAY ==
--- NOTE | ~2020-11-10 | CT_ITS ---
EXAMINATION: CT chest w con DATE: 11/10/2020 09:25 INDICATION: Malignant neoplasm of left upper lobe TECHNIQUE: Computed tomography (CT) of the chest was performed with 75 cc Omnipaque 350 intravenous c ontrast. Automated exposure control and iterative reconstruction technique were employed. Exam dose: 144.19 mGy-cm total exam DLP. COMPARISON: 10/03/2020 CT pulmonary scan 07/01/2020/CT scan FINDINGS: Right Port-A-Cath catheter tip in superior vena cava. Normal heart size. No pericardial or pleural effusion. Thoracic aortic, great vessel calcifications; no thoracic aortic aneurysm or dissection is detected. No hilar or mediastinal mass lesion or lymphadenopathy. Persistent irregular up to 2.8 cm soft tissue mass density of the lingula, stable or mildly diminishe d in size since 10/03/2020, which may be secondary to any combination of scarring or residual or recu rrent pulmonary malignancy. Consider PET/CT imaging to evaluate for active malignant process as clini shashi appropriate. Moderate emphysematous changes of the lungs. Stable chronic focal scarring in the right upper lobe, middle lobe, posterior right lower lobe. No interval pulmonary infiltrate or consolidation or pulmonary mass lesion is detected. Normal morphology of the adrenal glands. Status post cholecystectomy. There is intrahepatic and extrahepatic bile duct dilatation (up to 11.7 mm, bile duct caliber), the distal common bile duct not included in this examination. No interval suspicious osteolytic or osteoblastic lesions are noted. IMPRESSION: Stable or mildly diminished lingular mass density, which may be secondary to scarring, r esidual and/or recurrent malignancy; consider PET/CT imaging as clinically appropriate Moderate emphysema Bilateral pulmonary scarring Bile duct dilatation of uncertain cause Status post cholecystectomy. Reviewed, dictated and finalized at [facility]. Reviewed, dictated and finalized at location A. DESK ASSISTANT IMPRESSION: Stable or mildly diminished lingular mass density, which may be se condary to scarring, residual and/or recurrent malignancy; consider PET/CT imag ing as clinically appropriate Moderate emphysema Bilateral pulmonary scarring Bile duct dilatation of uncertain cause Status post cholecystectomy.
== END 2020-11-10 09:00 | disposition home or self-care (01) ==
LOC: ANHIMG 09:04
PROVIDERS: PCP Family Medicine; Visit Provider Internal Medicine Hematology & Oncology
DX: C34.92 Malignant neoplasm of unspecified part of left bronchus or lung (principal); Z90.49 Acquired absence of other specified parts of digestive tract; J43.9 Emphysema, unspecified
CPT/HCPCS: 71260; Q9967

== ENCOUNTER 2021-01-22 08:58 | Outpatient (CLI) | payer MEDICARE, SELFPAY ==
--- NOTE | ~2021-01-22 | CT_ITS ---
EXAMINATION: CT diagnostic chest w con DATE: 01/22/2021 09:50 INDICATION: Malignant neoplasm of the upper lobe of the left lung TECHNIQUE: Transaxial computed tomographic images of the chest were obtained after the administration of 75 cc of Omnipaque 350 intravenous contrast. The dose-length product (DLP) was 136.63 mGy-cm. Ite rative reconstruction was used. COMPARISON: 11/10/2020 FINDINGS: There is moderate emphysema. A left upper lobe nodule persists without significant change. There is peripheral atelectasis distal to the nodule. No suspicious interval change is identified. A right subclavian Port-A-Cath ends with its tip in the distal superior vena cava. No pathologically en larged thoracic lymph nodes are identified. The heart size is normal. There is moderate thoracic spon dylosis. IMPRESSION: 1. Stable left upper lobe nodule with peripheral atelectasis, consistent with primary bronchogenic ca rcinoma. No suspicious interval change. Reviewed, dictated and finalized at location A. MAKER APPRENTICE IMPRESSION: 1. Stable left upper lobe nodule with peripheral atelectasis, consistent with p rimary bronchogenic carcinoma. No suspicious interval change.
== END 2021-01-22 08:59 | disposition home or self-care (01) ==
PROVIDERS: PCP Family Medicine; Visit Provider Internal Medicine Hematology & Oncology
DX: C34.12 Malignant neoplasm of upper lobe, left bronchus or lung (principal); R91.8 Other nonspecific abnormal finding of lung field
CPT/HCPCS: 71260; Q9967

== ENCOUNTER 2021-03-11 10:57 | Inpatient (IN) | payer MEDICARE, SELFPAY ==
[2021-03-11] VITALS (20 sets, daily range): BP systolic 126–177; BP diastolic 66–90; PULSE 102–136; RESP 14–27; TEMP 36.3–37.4; O2SAT 82–99; BMI 21.1
--- NOTE | ~2021-03-11 | XR_ITS ---
EXAMINATION: XR chest 1V portable EXAM DATE: 03/11/2021 12:02 INDICATION: Shortness of breath. TECHNIQUE: Portable AP frontal chest x-ray was obtained. Comparison is made to prior examination from 10/03/2020. FINDINGS: Scattered regions of linear scarring unchanged. The lungs are otherwise clear. Lungs are hy perinflated. There are no pleural effusions. Cardiomediastinal silhouette is normal. There is a righ t-sided portacatheter with tube kinking at the 1st rib/clavicular junction; catheter is at risk for p inch off syndrome. There is no pneumothorax suspected. The bones and soft tissues are unremarkable. IMPRESSION: 1. Angelica catheter kinking, at risk for pinch off syndrome. 2. Hyperinflation. Reviewed, dictated and finalized at location A.
--- NOTE | ~2021-03-11 | CT_ITS ---
EXAMINATION: CTA chest PE protocol EXAM DATE: 03/11/2021 12:48 INDICATION: Shortness of breath for one day. History left-sided lung cancer. TECHNIQUE: Spiral CTA of the chest (pulmonary arteries) was performed with 100 cc Omnipaque 350 intr avenous contrast injection. Images were acquired during the pulmonary arterial phase. Coronal maxi mum intensity projection 3D-reconstructions were created by the technologist on dedicated workstation . Axial, coronal and sagittal reformatted images were reviewed. The dose-length product (DLP) for t his examination was 205.25 mGy-cm. The exposure was tailored according to patient size (auto mA exp osure control), and iterative reconstruction (ASIR) was used as additional dose reduction technique. Comparison is made to prior examination from 01/22/2021. FINDINGS: The main, central pulmonary arteries are dilated which can indicate elevated pulmonary art erial pressure, pulmonary arterial hypertension. No intraluminal filling defects within the pulmonary arteries. No thoracic aortic dissection. Moderate to severe emphysema. Again there is flat irregular shaped left upper lobe anterior opacity d ifficult to measure given shape, is slightly thicker as measured on coronal image at 10 mm versus 8 m m on prior study. Probably patient's treated lung cancer. There is some left lower lobe medial parasp inal low density opacity which is new compared to prior exam, region also flat, measuring about centi meters diameter by 1 cm in thickness. Ill-defined mediastinal fat. There are no pleural or pericardia l effusions. Tracheobronchial tree is patent. There is no mediastinal, hilar or axillary lymphade nopathy. There is no pneumothorax. Heart normal in size. There are cholecystectomy clips. The re is mild thoracic spondylosis without osteoblastic or osteolytic lesions identified. IMPRESSION: 1. Dilated pulmonary arteries, no emboli. 2. Mild increase in volume of left upper lobe anterior segmental malignancy. 3. Development of pleural-based left lower lobe opacity, could be radiation-related scarring, pneumo ruth or malignancy. 4. Development of ill-defined mediastinal fat, also could be radiation related change. 5. Moderate to severe emphysema. Reviewed, dictated and finalized at location A. IMPRESSION: 1. Dilated pulmonary arteries, no emboli. 2. Mild increase in volume of left upper lobe anterior segmental malignancy. 3. Development of pleural-based left lower lobe opacity, could be radiation-re lated scarring, pneumonia or malignancy. 4. Development of ill-defined mediastinal fat, also could be radiation related change. 5. Moderate to severe emphysema.
--- NOTE | 2021-03-11 11:14 | ECG_ITS ---
Measurements Intervals [place] Rate: 118 P: 86 RI: 143 QRS: 99 QRSD: 94 T: 76 QT: 289 QTc: 405 Interpretive Statements SINUS TACHYCARDIA RIGHT AXIS DEVIATION BASELINE ARTIFACT- I, II, III, AVR, AVL, AVF, V1-V6 ABNORMAL ECG Electronically Signed On 03-11-2021 11:52:09 CDT by Raudel Caraballo D.O.
--- NOTE | 2021-03-11 11:22 | ED.SOB ---
HPI - SOB/Dyspnea General Chief Complaint: Shortness of Breath/Dyspnea Stated Complaint: sob Time Seen by Provider: 03/11/21 11:00 Source: patient, RN notes reviewed and old records reviewed Mode of arrival: wheelchair Limitations: no limitations History of Present Illness HPI Narrative: This is a 56 year old female with history of COPD, lung CA , chronic oxygen dependent 3L NC who presents for evaluation of shortness of breath. Patient's sister is at bedside to give additional history. Patient reports she has been having worsening difficulty breathing over the past month. Her sister noticed patient was having more trouble breathing this morning when she arrived. Patient arrived today at her oncologist, and her daughter reports her oxygen saturation was 50s. They were able to get her oxgyen up to 80s . Patient denies worsening cough, fever, chills, nausea or vomiting. She reports left lateral chest pain that has been present for while. She was diagnosed with lung cancer last May , and she received chemo and radiation. Her oncologist is Dr. Siddiqui. Related Data Home Medications Medication Instructions Recorded Confirmed lamotrigine 100 mg tablet 100 mg PO BID 11/02/19 02/25/21 quetiapine 200 mg tablet 200 mg PO BID 11/02/19 02/25/21 quetiapine 400 mg tablet 400 mg PO DAILY tablet 11/02/19 02/25/21 hydrocodone-acetaminophen 1 tablet PO Q4H PRN 07/09/20 02/25/21 Daily Vitamin See Rx Instructions .ROUTE .COMPLEX 09/04/20 02/25/21 alprazolam [Xanax] 1 mg PO BID PRN 10/03/20 02/25/21 Allergies Allergy/AdvReac Type Severity Reaction Status Date / Time No Known Allergies Allergy Verified 03/11/21 11:07 Review of Systems Review of Systems: All systems reviewed & are unremarkable except as noted in HPI and below PMFSH Past Medical History Medical History Anxiety and depression Bipolar 1 disorder COPD (chronic obstructive pulmonary disease) Malignant neoplasm of upper lobe, left bronchus or lung Surgical History Surgical History History of cholecystectomy Family History Family History Mother Lung cancer Hypertension Father Lung cancer Sibling Ovarian cancer Social History Social History (Updated 10/03/20 @ 21:57 by Lisa Cedillo NP) Social History: The patient is and she is disabled. The patient was smoking 2 packs of cigarettes a day and smoked for 41 years. The patient stated she recently quit smoking. She occasionally has an alcoholic beverage. She uses marijuana but no illicit drugs. Patient is a DNR and her sister knows what she wants. Although she did not say that her sister was officially the power wealth management director. The patient has 1 son. The patient stated when it is time she will be ready to go to hospice. Smoking packs per day: 2 Smoking cigarettes per day: 40.0 Years smoked: 40 Smoking pack-years: 80.00 Smoking status: Heavy tobacco smoker Tobacco type: cigarettes Alcohol intake: current Substance use: current Substance use type: marijuana Other substance usage details: MARIJUANA EDIBLES Gender identity (if verbalized by the patient): Female Spiritual care concerns: No Exam Const: General: alert and ill appearing Nutritional Appearance: thin Orientation/consciousness: patient oriented x3 Eyes: EOM: EOMs intact bilaterally Resp: Effort & Inspection: normal respiratory effort, not labored, no retractions and not tachypneic Auscultation: diminished lung sounds diffuse Cardio: Rate: tachycardic Rhythm: regular rhythm Heart sounds: no murmurs GI: GI Palp: Yes Soft to palpation, No Tenderness to palpation present (GI) and No Guarding due to palpation present (GI) Auscultation: normal bowel sounds Neuro: General: patient oriented x3 and moves all extremities Extrem: General: n
[2021-03-11] MEDS: LACTATED RINGERS 1,000 ML 999 ML IV CONT (11:29)
[2021-03-11 11:40] LABS: Basophils Percent Auto 0.4 % (0.2-1.2); Eosinophils Absolute Auto 0.2 K/mm3 (0-0.3); Eosinophils Percent Auto 3.1 % (0-4.4); Hematocrit 31.3 % (37.0-47.0); Hemoglobin 9.8 g/dL (12.0-15.0); Immature Granulocyte Absolute 0.01 K/mm3 (0.00-0.031); Immature Granulocyte Percent A 0.2 % (0-0.5); Immature Platelet Fraction Pct 2.7 % (0.9-11.2); Lymphocytes Absolute Auto 0.85 K/mm3 (0.9-3.2); Lymphocytes Percent Auto 16.3 % (18.3-44.2); Mean Corpuscular HGB Conc 31.3 g/dl (32-36); Mean Corpuscular Hemoglobin 31.8 pg (26-34); Mean Corpuscular Volume 101.6 fl (80-100); Mean Platelet Volume 8.9 fl (7.4-10.4); Monocytes Absolute Auto 0.6 K/mm3 (0.1-0.6); Monocytes Percent Auto 11.7 % (2.6-8.5); Neutrophils Absolute Auto 3.6 K/mm3 (1.3-6.7); Neutrophils Percent Auto 68.3 % (45.5-73.1); Platelet Count Result 173 k/mm3 (150-375); Red Blood Count 3.08 M/mm3 (4.2-5.4); White Blood Count 5.2 K/mm3 (4.5-10.0)
[2021-03-11] MEDS: IPRATROPIUM BR 0.02% INH SOLN 0.5 MG/2.5 ML VIAL 1 MG INHALATION (11:43)
[2021-03-11] MEDS: ALBUTEROL SULFATE NEB 2.5 MG/0.5 ML INH 10 MG INHALATION (11:43)
[2021-03-11 11:48] LABS: INR 0.8; Lactic Acid Reflex 0.8 mmol/L (0.7-2.1); Prothrombin Time 11.5 Seconds (11.1-14.7)
[2021-03-11 11:48] LABS: Alveolar/Arterial O2 Gradient 102.2 mmHg; Base Excess ABG 13.5 mEq/l (+/-2.0); Carboxyhemoglobin 7.8 % THb (0-2.0); Fractional Inspired Oxygen 36 %; HCO3 ABG 41.9 mEq/l (22.0-26.0); Methemoglobin ABG 0.3 %THb (0-1.5); Oxygen Content ABG 12.8 %vol (16.0-22.0); Oxygen Saturation ABG 90.1 % (95.0-100.0); Oxyhemoglobin 84.7 % THb (90.0-100.0); PO2 ABG 63.8 mmHg (80.0-100.0); PO2 FiO2 Ratio Arterial Blood 1.77 %; Reduced Hemoglobin 7.2 %THb (0-5.0); Total Hemoglobin 10.7 g/dL (12.0-18.0); pH ABG 7.347 (7.350-7.450)
[2021-03-11 11:49] LABS: Partial Thromboplastin Time 27.5 SECONDS (22.3-36.8)
[2021-03-11 11:52] LABS: Device NASAL CANNULA; Modified Allen's Test Pass; PCO2 ABG 78.2 mmHg (35.0-45.0); Site Drawn LEFT RADIAL
[2021-03-11 11:54] LABS: Alanine Aminotransferase 10 U/L (4-35); Albumin Level 3.7 g/dL (3.5-5.1); Alkaline Phosphatase 98 U/L (38-126); Aspartate Amino Transferase 19 U/L (14-36); Bilirubin,Total < 0.1 mg/dL (0.2-1.3); Blood Urea Nitrogen 13 mg/dL (7-17); CRP 1.7 mg/dL (<1.0); Calcium 9.1 mg/dL (8.4-10.2); Carbon Dioxide > 40 mmol/L (22-30); Chloride 87 mmol/L (98-107); Estimated CRCL calculation 93 ml/min; Estimated Glomerular Filt Rate > 60; Glucose 93 mg/dL (65-105); Potassium 4.2 mmol/L (3.4-5.0); Sodium 136 mmol/L (137-145)
[2021-03-11 12:00] LABS: NT Pro B Type Natriuretic Pept 134 pg/mL (5-100); Troponin I < 0.012 ng/mL (0.000-0.034)
--- NOTE | 2021-03-11 14:20 | PC.NURSE ---
patient walked to bathroom on walking pulse ox, patient dropped to 85% on 4L oxygen. EDP aware
[2021-03-11] MEDS: methylPREDNISolone SOD SUCC 125 MG VIAL IV PUSH (15:16)
--- NOTE | 2021-03-11 15:38 | PC.NURSE ---
patient's room being cleaned at this time, unable to give report
--- NOTE | 2021-03-11 16:36 | PC.NURSE ---
This patient, Jonathon Pacheco, was admitted to IMU Room 204-01. Patient/family oriented to hospital policies and general routines including ID bracelet, bed and alarms, visiting hours, pain management, procedures, bathroom and other care routines, personal items, smoking policy, room service/diet, and visiting hours. Information on how to activate the Rapid Response Team has been discussed. Patient/Family are encouraged to report perceived risks to care and to ask questions if they do not understand what they are told or what they should do.
--- NOTE | 2021-03-11 19:52 | PM.IMHP ---
H&P: HPI History of Present Illness Date/Time: 03/11/21 19:52 this is a 56-year-old female patient who has a history of COPD, lung cancer to the left upper lobe. And is chronic oxygen dependent at 3 L per nasal cannula. The patient came in today to be evaluated for shortness of breath. Her sister was at the bedside earlier today. The patient does get chemotherapy and radiation she sees Dr. melendez and Dr. Reyna. The patient stated that she has been having more difficulty breathing over the last month but today was worse. The patient was at her oncologist's office today and her oxygen level was in the 50s. They were able to get her oxygen level up to the 80s. The patient has a cough which is chronic. She has had no fever chills. The patient stated that she was due for treatment but was not going to get it due to her condition. She does have depression with anxiety as well. The patient's oxygen level fell down to 84% on 4 L when the patient went to the bathroom. The patient was increased to 5 L per nasal cannula. Her H&H is 9.8 and 31.3. Chest x-ray was read as Port-A-Cath kinking at risk for pinching off syndrome. Hyperinflation. Chest CTA was read per radiology as dilated pulmonary arteries, no emboli. Mild increase in volume of left upper lobe anterior segmental malignancy. Development of pleural base left lower lobe opacities could be radiation related scarring, pneumonia malignancy. Development of ill-defined mediastinal fat, also could be radiation related change. Moderate to severe emphysema. The patient was given Solu-Medrol and nebulizer treatments. Blood cultures were obtained. Patient is being admitted to observation status on 03/11/2021. Chief Complaint: Dyspnea on exertion Review of Systems Review of Systems: All systems reviewed & are unremarkable except as noted in HPI and below Constitutional: Constitutional: Reports as per HPI and Reports no additional constitutional complaints Eyes: Eyes: Reports as per HPI and Reports no additional eye complaints ENT: Reports system reviewed and no additional complaints, except as documented and Reports Normal hearing present Cardiovascular: Cardiovascular: Reports no additional cardiovascular complaints Respiratory: Respiratory: Reports no additional respiratory complaints and Reports no additional respiratory complaints Gastrointestinal: Gastrointestinal: Reports as per HPI and Reports no additional gastrointestinal complaints Musculoskeletal: Musculoskeletal: Reports no additional musculoskeletal complaints Integumentary/Breasts: Skin/Breast: Reports system reviewed and no additional complaints, except as docu and Reports as per HPI Neurologic: Reports system reviewed and no additional complaints, except as documented, Reports as per HPI and Reports Normal hearing present Psychiatric: Psychiatric: Reports no additional psychiatric complaints and Reports as per HPI Endocrine: Endocrine: Reports no additional endocrine complaints Hematologic/Lymphatic: Hematologic/Lymphatic: Reports no additional hematologic/lymphatic complaints Allergic/Immunologic: Allergic/Immunologic: Reports no additional allergic/immunologic complaints [facility] Past Medical History Medical History (Updated 03/11/21 @ 20:01 by Lisa Cedillo NP) Anemia Anxiety and depression Bipolar 1 disorder COPD (chronic obstructive pulmonary disease) Malignant neoplasm of upper lobe, left bronchus or lung Surgical History Surgical History (Updated 03/11/21 @ 20:01 by Lisa Cedillo NP) H/O tubal ligation History of cholecystectomy Family History Family History Mother Lung cancer Hypertension Father Lung cancer Sibling Ovarian cancer Social History Social History Social History: The patient is and she is disabled. The patient was smoking 2 packs of cigarettes a day and sm
[2021-03-11] MEDS: IPRATROPIUM BR 0.02% INH SOLN 0.5 MG/2.5 ML VIAL INHALATION (20:46)
[2021-03-11] MEDS: ALBUTEROL SULFATE NEB 2.5 MG/0.5 ML INH 5 MG INHALATION (20:46)
[2021-03-11] MEDS: QUEtiapine FUMARATE 100 MG TABLET 600 MG PO (21:37)
[2021-03-11] MEDS: lamoTRIgine 100 MG TABLET PO (21:37)
[2021-03-11] MEDS: methylPREDNISolone SOD SUCC 125 MG VIAL 60 MG IV PUSH (21:37)
[2021-03-11] MEDS: LORazepam INJ (*CRX) 2 MG/ML VIAL 0.5 MG IV PUSH (22:54)
--- NOTE | 2021-03-11 23:21 | PC.NURSE ---
Pt states that her dose of klonazpam is correct but is unable to verify as bottles are at home. Attempted to call [facility] to check their records but was unable to speak to anyone. Hospital Pharmacy aware of impasse as is provider.
[2021-03-12] VITALS (25 sets, daily range): BP systolic 117–168; BP diastolic 71–91; PULSE 100–131; RESP 16–34; TEMP 36.6–37.6; O2SAT 91–99
[2021-03-12] MEDS: IPRATROPIUM BR 0.02% INH SOLN 0.5 MG/2.5 ML VIAL INHALATION ×4 (01:52→20:14)
[2021-03-12] MEDS: ALBUTEROL SULFATE NEB 2.5 MG/0.5 ML INH 5 MG INHALATION ×4 (01:52→20:14)
[2021-03-12 05:35] LABS: Basophils Percent Auto 0.2 % (0.2-1.2); Hematocrit 34.3 % (37.0-47.0); Hemoglobin 10.8 g/dL (12.0-15.0); Immature Granulocyte Absolute 0.02 K/mm3 (0.00-0.031); Immature Granulocyte Percent A 0.5 % (0-0.5); Lymphocytes Absolute Auto 0.42 K/mm3 (0.9-3.2); Lymphocytes Percent Auto 9.7 % (18.3-44.2); Mean Corpuscular HGB Conc 31.5 g/dl (32-36); Mean Corpuscular Hemoglobin 31.3 pg (26-34); Mean Corpuscular Volume 99.4 fl (80-100); Mean Platelet Volume 9.4 fl (7.4-10.4); Monocytes Absolute Auto 0.1 K/mm3 (0.1-0.6); Neutrophils Absolute Auto 3.7 K/mm3 (1.3-6.7); Neutrophils Percent Auto 86.6 % (45.5-73.1); Platelet Count Result 161 k/mm3 (150-375); Red Blood Count 3.45 M/mm3 (4.2-5.4); White Blood Count 4.3 K/mm3 (4.5-10.0)
[2021-03-12] MEDS: methylPREDNISolone SOD SUCC 125 MG VIAL 60 MG IV PUSH ×3 (05:43→20:31)
[2021-03-12 05:51] LABS: Alanine Aminotransferase 15 U/L (4-35); Albumin Level 3.9 g/dL (3.5-5.1); Alkaline Phosphatase 84 U/L (38-126); Aspartate Amino Transferase 22 U/L (14-36); Bilirubin,Total 0.1 mg/dL (0.2-1.3); Blood Urea Nitrogen 12 mg/dL (7-17); Calcium 9.4 mg/dL (8.4-10.2); Carbon Dioxide > 40 mmol/L (22-30); Chloride 89 mmol/L (98-107); Estimated CRCL calculation 89 ml/min; Estimated Glomerular Filt Rate > 60; Glucose 147 mg/dL (65-105); Potassium 4.1 mmol/L (3.4-5.0); Sodium 138 mmol/L (137-145)
[2021-03-12] MEDS: MULTIVITAMINS /C LUTEIN (CENTRUM SILVER) TABLET *BKC 1 TAB PO (08:41)
[2021-03-12] MEDS: lamoTRIgine 100 MG TABLET PO ×2 (08:41→20:32)
[2021-03-12] MEDS: acetaZOLAMIDE TAB 250 MG TABLET PO (08:41)
[2021-03-12] MEDS: HYDROcodone/acetaminophen (*CRX) 5-325 MG TABLET 1 TAB PO (12:42)
--- NOTE | 2021-03-12 12:42 | PDONCCN ---
HPI - Date of Consult Date/Time: 03/12/21 12:42 Requesting Physician: Yana Manuel MD Primary Care Provider: Aleksey Granger, DO - Consult Narrative Reason for consult: Non-small cell lung cancer Narrative: Jonathon Pacheco is a 56 year old female with stage III non-small cell lung cancer completed chemotherapy with carboplatin Taxol in October of 2020. Currently she is on maintenance treatment with durvalumab started in November of 2020. Patient came into the office yesterday to receive maintenance treatment. She was significantly short of breath and was looking quite tired and fatigued. She was sent to the ER to check for pulmonary embolism. CT chest was performed that showed no PE. She was admitted to the hospital with COPD excerbation. She was started on steroid treatment. She her breathing has improved. She still have some nonproductive cough. Denies any high fevers and chills. She has temperature of 99 degree. No bleeding and bruising. No other new complaint. Review of Systems - Review of Systems All systems reviewed & are unremarkable except as noted in HPI and bel - Neurologic Reports system reviewed and no additional complaints, except as documented, Reports hearing normal [facility] Medical History: Medical History (Last Updated 03/11/21 @ 20:01 by Lisa Cedillo NP) Anemia Anxiety and depression Bipolar 1 disorder COPD (chronic obstructive pulmonary disease) Malignant neoplasm of upper lobe, left bronchus or lung Surgical History: Surgical History (Last Updated 03/11/21 @ 20:01 by Lisa Cedillo NP) H/O tubal ligation History of cholecystectomy Family History: Family History (Last Reviewed 03/11/21 @ 20:01 by Lisa Cedillo NP) Mother Lung cancer Hypertension Father Lung cancer Sibling Ovarian cancer - Social History Social History: Social History (Last Reviewed 03/11/21 @ 20:01 by Lisa Cedillo NP) Gender Identity: Gender identity (if verbalized by the patient): Female Alcohol Use: Alcohol intake: never Substance Use: Substance use: never Substance use type: marijuana Other substance usage details: MARIJUANA EDIBLES Others: Spiritual care concerns: No Smoking Status: Smoking status: Former smoker Tobacco type: cigarettes Second hand tobacco smoke exposure: Yes Approximate Smoking End Date: August 2020 Smoking Pack-years: Smoking packs per day: 2 Smoking cigarettes per day: 40.0 Years smoked: 43 Smoking pack-years: 86.00 Meds Home Medications Medication Instructions Recorded Confirmed Type lamotrigine 100 mg tablet 100 mg PO Q12H 11/02/19 03/11/21 History quetiapine 200 mg tablet 200 mg PO DAILY 11/02/19 03/11/21 History quetiapine 400 mg tablet 600 mg PO HS tablet 11/02/19 03/11/21 History hydrocodone-acetaminophen 1 tablet PO Q4H PRN 07/09/20 03/11/21 History albuterol sulfate 90 mcg/actuation 2 puff INHALATION Q4H PRN #18 gm 08/08/20 03/11/21 Rx aerosol inhaler [id number]-vit K 1 tablet PO DAILY #0 09/04/20 03/11/21 History [Adults Multivitamin] alprazolam [Xanax] 1 mg PO BID PRN 10/03/20 03/11/21 History rivaroxaban [Xarelto] 20 mg PO QPM #30 tablet 10/05/20 03/11/21 Rx clonazepam [Klonopin] 10 mg PO Q12H PRN 03/11/21 03/11/21 History Allergies Allergy/AdvReac Type Severity Reaction Status Date / Time No Known Allergies Allergy Verified 03/11/21 17:11 Results - Labs CBC & Chem 7: 03/12/21 04:29 03/12/21 04:29 Labs: Short CBC 03/12/21 Range/Units 04:29 WBC 4.3 L (4.5-10.0) K/mm3 Hgb 10.8 L (12.0-15.0) g/dL Hct 34.3 L (37.0-47.0) % Plt Count 161 (150-375) k/mm3 BMP 03/12/21 04:29 Sodium 138 Potassium 4.1 Chloride 89 L Carbon Dioxide > 40 H BUN 12 Creatinine 0.50 L Glucose 147 H Calcium 9.4 Liver Function 03/12/21 Range/Units 04:29 Total Bilirubin 0.1 L (0.
--- NOTE | 2021-03-12 15:18 | PM.IMPN ---
Progress Note: A&P Assessment and Plan (1) Acute exacerbation of chronic obstructive airways disease: Code(s): J44.1 - Chronic obstructive pulmonary disease with (acute) exacerbation Status: Acute Assessment and Plan: Her CTA shows no PE today and she is on Xarelto for history of PE. The patient does have COPD and she also has cancer as well. The patient is seeing Dr. melendez for her lung cancer. I did consult Dr. melendez did. The patient has greater oxygen demands. I also noticed that her anemia is worse. Continue with Solu-Medrol neb treatments. Will get cultures sputum and blood cultures. We discussed a COVID test but the patient is refusing. The patient stated that she has not had any fever chills. She has not had any exposure to COVID. We will hold off on a COVID test at this time however she develops a fever then I suggested that we do the COVID test. The patient is requiring oxygen at 5 L per nasal cannula and a non-rebreather at times. The patient told me that she is a DNR although she has a modified code in the computer. She had discussed hospice at 1 point but feels she is not ready for that as of yet. The patient continues to have radiation and chemotherapy. Patient's arterial blood gases 7.347 with a CO2 of 78.2. PO2 63.8. May consider BiPAP if needed. 03/12/21 15:18 patient is a 56-year-old female with history of stage III non-small cell lung cancer seen by oncologist and going through the chemotherapy her last chemotherapy was in October of 2020 patient presented emergency depart with complaint persistent cough and shortness of breath patient is found to have pneumonia we have started the patient on Zosyn and doxycycline, patient also has history of COPD being treated with steroid and updraft, patient states is feeling much better compared to when she arrived patient denies any chest pain shortness of breath palpitation fever or chills (2) Pulmonary embolism: Code(s): I26.99 - Other pulmonary embolism without acute cor pulmonale Status: Acute Assessment and Plan: No active PE at this time. Her CT was negative for PE and she is on Xarelto (3) Anemia: Code(s): D64.9 - Anemia, unspecified Status: Chronic Assessment and Plan: Her hemoglobin is lower than Normal. Will check stool for occult blood and check her CBC in the a.m. (4) Port-A-Cath in place: Code(s): Z95.828 - Presence of other vascular implants and grafts Status: Acute Assessment and Plan: It is in place but her chest x-ray showing some kinking. (5) Malignant neoplasm of upper lobe, left bronchus or lung: Code(s): C34.12 - Malignant neoplasm of upper lobe, left bronchus or lung Status: Chronic Assessment and Plan: I did consult Dr. melendez. Continue with [place]. (6) Bipolar 1 disorder: Code(s): F31.9 - Bipolar disorder, unspecified Status: Chronic Assessment and Plan: Continue with Xanax, Klonopin, Lamictal, and Seroquel. Subjective Date/time seen: 03/12/21 15:18 patient is a 56-year-old female with history of stage III non-small cell lung cancer seen by oncologist and going through the chemotherapy her last chemotherapy was in October of 2020 patient presented emergency depart with complaint persistent cough and shortness of breath patient is found to have pneumonia we have started the patient on Zosyn and doxycycline, patient also has history of COPD being treated with steroid and updraft, patient states is feeling much better compared to when she arrived patient denies any chest pain shortness of breath palpitation fever or chills Review of Systems Review of Systems: All systems reviewed & are unremarkable except as noted in HPI and below Exam Narrative: Exam Narrative: Patient is comfortable, NAD HEENT: eyes are clear and none icteric LUNGS: Bilateral fair entry with rhonchi HEART: RR S1S2 ABD: BS+, Soft and nontender Lower extremi
[2021-03-12] MEDS: CENTRAL LINE FLUSH 10 ML IV PUSH ×2 (15:21→20:47)
[2021-03-12] MEDS: RIVAROXABAN 20 MG TABLET PO (17:45)
[2021-03-12] MEDS: QUEtiapine FUMARATE 100 MG TABLET 600 MG PO (20:32)
[2021-03-13] VITALS (26 sets, daily range): BP systolic 122–174; BP diastolic 68–95; PULSE 92–120; RESP 20–27; TEMP 35.7–37.3; O2SAT 90–100
[2021-03-13] MEDS: IPRATROPIUM BR 0.02% INH SOLN 0.5 MG/2.5 ML VIAL INHALATION ×4 (02:22→22:27)
[2021-03-13] MEDS: ALBUTEROL SULFATE NEB 2.5 MG/0.5 ML INH 5 MG INHALATION (02:22)
[2021-03-13] MEDS: methylPREDNISolone SOD SUCC 125 MG VIAL 60 MG IV PUSH ×2 (05:41→15:01)
[2021-03-13 05:42] LABS: Hematocrit 33.3 % (37.0-47.0); Mean Corpuscular Hemoglobin 31.4 pg (26-34); Mean Corpuscular Volume 95.1 fl (80-100); Mean Platelet Volume 8.6 fl (7.4-10.4); Platelet Count Result 182 k/mm3 (150-375); Red Cell Distribution Width 12.1 % (11.5-14.5); White Blood Count 7.5 K/mm3 (4.5-10.0)
[2021-03-13] MEDS: CENTRAL LINE FLUSH 10 ML IV PUSH ×3 (05:43→20:22)
[2021-03-13 05:54] LABS: Alanine Aminotransferase 13 U/L (4-35); Alkaline Phosphatase 84 U/L (38-126); Anion Gap 1 mmol/L (8-16); Aspartate Amino Transferase 19 U/L (14-36); Bilirubin,Total < 0.1 mg/dL (0.2-1.3); Blood Urea Nitrogen 20 mg/dL (7-17); Calcium 9.6 mg/dL (8.4-10.2); Carbon Dioxide 39 mmol/L (22-30); Chloride 99 mmol/L (98-107); Estimated CRCL calculation 58 ml/min; Estimated Glomerular Filt Rate > 60; Glucose 149 mg/dL (65-105); Magnesium 2.1 mg/dL (1.6-2.3); Potassium 3.9 mmol/L (3.4-5.0); Sodium 139 mmol/L (137-145)
[2021-03-13] MEDS: lamoTRIgine 100 MG TABLET PO ×2 (08:20→20:19)
[2021-03-13] MEDS: MULTIVITAMINS /C LUTEIN (CENTRUM SILVER) TABLET *BKC 1 TAB PO (08:21)
--- NOTE | 2021-03-13 08:38 | ECG_ITS ---
Measurements Intervals [place] Rate: 106 P: 84 CO: 108 QRS: 91 QRSD: 87 T: 72 QT: 309 QTc: 411 Interpretive Statements SINUS TACHYCARDIA RIGHT AXIS DEVIATION BASELINE ARTIFACT- I, II, III, AVR, AVL, AVF, V1-V6 ABNORMAL ECG Electronically Signed On 03-13-2021 14:21:50 CDT by Raudel Caraballo D.O.
[2021-03-13] MEDS: NITROGLYCERIN SL 0.4 MG TABLET SUBLINGUAL (08:42)
--- NOTE | 2021-03-13 08:52 | PC.NURSE ---
Patient stated having severe chest pain and nausea to RT. RT notified RN, RN at bedside assessing patient. Dr. Rodríguez notified about this. STAT EKG, Trops, and nitro were ordered per Dr. Rodríguez. Will continue to monitor.
[2021-03-13 09:11] LABS: Troponin I < 0.012 ng/mL (0.000-0.034)
[2021-03-13] MEDS: HYDROcodone/acetaminophen (*CRX) 5-325 MG TABLET 1 TAB PO (09:36)
--- NOTE | 2021-03-13 10:55 | PC.NURSE ---
Patient denies additional pain medication upon reassessment at this time.
[2021-03-13] MEDS: ALPRAZolam (*CRX) 0.5 MG TABLET 1 MG PO (10:57)
--- NOTE | 2021-03-13 13:45 | PM.IMPN ---
Progress Note: A&P Assessment and Plan (1) Acute exacerbation of chronic obstructive airways disease: Code(s): J44.1 - Chronic obstructive pulmonary disease with (acute) exacerbation Status: Acute Assessment and Plan: 03/13/21 13:45 Her CTA shows no PE today and she is on Xarelto for history of PE. The patient does have COPD and she also has cancer as well. The patient is seeing Dr. melendez for her lung cancer. I did consult Dr. melendez did. The patient has greater oxygen demands. I also noticed that her anemia is worse. Continue with Solu-Medrol neb treatments. Will get cultures sputum and blood cultures. We discussed a COVID test but the patient is refusing. The patient stated that she has not had any fever chills. She has not had any exposure to COVID. We will hold off on a COVID test at this time however she develops a fever then I suggested that we do the COVID test. The patient is requiring oxygen at 5 L per nasal cannula and a non-rebreather at times. The patient told me that she is a DNR although she has a modified code in the computer. She had discussed hospice at 1 point but feels she is not ready for that as of yet. The patient continues to have radiation and chemotherapy. Patient's arterial blood gases 7.347 with a CO2 of 78.2. PO2 63.8. May consider BiPAP if needed. 03/12/21 15:18 patient is a 56-year-old female with history of stage III non-small cell lung cancer seen by oncologist and going through the chemotherapy her last chemotherapy was in October of 2020 patient presented emergency depart with complaint persistent cough and shortness of breath patient is found to have pneumonia we have started the patient on Zosyn and doxycycline, patient also has history of COPD being treated with steroid and updraft, patient states is feeling much better compared to when she arrived patient denies any chest pain shortness of breath palpitation fever or chills. 03/13/21 earlier today patient had a complaint of chest EKG was which was essentially normal, and first tropes was negative, apparently during infusion of antibiotic patient felt chest pain when she was lying in the bed once patient set up in the bed her pain resolved, patient with a stage III non-small cell carcinoma, severe COPD now with pneumonia being treated Zosyn doxycycline Solu-Medrol and updraft, will continue to monitor we have consulted resource teacher further recommendation to follow. (2) Pulmonary embolism: Code(s): I26.99 - Other pulmonary embolism without acute cor pulmonale Status: Acute Assessment and Plan: No active PE at this time. Her CT was negative for PE and she is on Xarelto (3) Anemia: Code(s): D64.9 - Anemia, unspecified Status: Chronic Assessment and Plan: Her hemoglobin is lower than Normal. Will check stool for occult blood and check her CBC in the a.m. (4) Port-A-Cath in place: Code(s): Z95.828 - Presence of other vascular implants and grafts Status: Acute Assessment and Plan: It is in place but her chest x-ray showing some kinking. (5) Malignant neoplasm of upper lobe, left bronchus or lung: Code(s): C34.12 - Malignant neoplasm of upper lobe, left bronchus or lung Status: Chronic Assessment and Plan: I did consult Dr. melendez. Continue with [place]. (6) Bipolar 1 disorder: Code(s): F31.9 - Bipolar disorder, unspecified Status: Chronic Assessment and Plan: Continue with Xanax, Klonopin, Lamictal, and Seroquel. Subjective Date/time seen: 03/13/21 13:45 Her CTA shows no PE today and she is on Xarelto for history of PE. The patient does have COPD and she also has cancer as well. The patient is seeing Dr. melendez for her lung cancer. I did consult Dr. melendez did. The patient has greater oxygen demands. I also noticed that her anemia is worse. Continue with Solu-Medrol neb treatments. Will get cultures sputum and blood cultures. We dis
--- NOTE | 2021-03-13 15:00 | PCRCNOTE ---
Starting process for home Trilogy with patient's Bianca RACHEL. Paperwork faxed.
--- NOTE | 2021-03-13 16:05 | PM.CNPUL ---
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 Patient is maintained on darvalumab. patient is followed by her oncologist Dr. Maryana rosa. Patient has CT angiogram of the chest on 03/11/2021 that showed mild increase in the volume of the left upper lobe anterior segmental malignancy with moderate to severe emphysema. Dr. Cooper is consulted. (2) Acute exacerbation of chronic obstructive airways disease: Code(s): J44.1 - Chronic obstructive pulmonary disease with (acute) exacerbation Status: Acute Assessment and Plan: Patient with history of tobacco use with moderate to severe emphysema on her CT scan of the chest for 03/11/2021. At home she was maintained on albuterol inhaler. Currently patient with a COPD exacerbation treated with Solu-Medrol, ipratropium bromide 0.5 mg q.6 and levalbuterol nebulizers 1.25 mg Q 6 hours as she has a history of atrial fibrillation, and budesonide 0.5 mg b.i.d.. Patient is now breathing back at her baseline and I will change her to prednisone 50 mg p.o. q.day and continue this for a total of 5 days of systemic steroids. Systemic steroids were started on 03/11. I will continue the bronchodilators. Patient is being treated with Zosyn and doxycycline for presumed pneumonia but she has no leukocytosis on presentation and there are no focal infiltrates on her CT scan of the chest. I will discontinue the Zosyn and continue the doxycycline for total of 7 days. (3) Chronic respiratory failure with hypoxia and hypercapnia: Code(s): J96.11 - Chronic respiratory failure with hypoxia; J96.12 - Chronic respiratory failure with hypercapnia Status: Acute Assessment and Plan: Patient with chronic hypoxemic respiratory failure from her COPD. Patient states she is on 2-3 L at rest and at night and 4 L wiht ambulation. currently she is on 2 L nasal cannula with saturations 100%. Will wean to maintain saturations 90-94%. Patient will need a home O2 assessment and an overnight oximetry on her BiPAP prior to discharge to determine her oxygen requirements. Patient with chronic hypercapnic respiratory failure from her COPD with an elevated serum bicarb of greater than 40 and a blood gas with a pH of 7.35/78/64 on 4 L nasal cannula. She was noted to be hypercarbic on 10/03/2020 and refused BiPAP at this time but is now willing to entertain BiPAP at this time. The patient would benefit from BiPAP to prevent further deterioration from her disease. Unfortunately patient could not tolerate the pressures with BiPAP and I will initiate noninvasive ventilation with AVAPS mode. I will place her on AVAPS with a backup rate of 16, tidal volume 400, minimal inspiratory pressure 6, maximal inspiratory pressure 20, EPAP 5, 35% FiO2 tonight. I will obtain an ABG in the morning prior to removal of the noninvasive ventilation to assess her for carbon dioxide. Will follow with you. 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 CT scan on 01/22/2021 noted that the left upper lobe nodule was stable without any interval change since 11/10/20
[2021-03-13] MEDS: RIVAROXABAN 20 MG TABLET PO (17:24)
[2021-03-13] MEDS: predniSONE 20 MG TABLET 40 MG PO (17:24)
[2021-03-13] MEDS: QUEtiapine FUMARATE 100 MG TABLET 600 MG PO (20:20)
[2021-03-13] MEDS: BUDESONIDE RESPULE NEB 0.5 MG/2 ML AMP INHALATION (22:27)
[2021-03-14] VITALS (24 sets, daily range): BP systolic 101–152; BP diastolic 59–94; PULSE 83–114; RESP 16–26; TEMP 36.2–36.9; O2SAT 95–100
[2021-03-14] MEDS: IPRATROPIUM BR 0.02% INH SOLN 0.5 MG/2.5 ML VIAL INHALATION ×4 (03:15→19:38)
[2021-03-14] MEDS: CENTRAL LINE FLUSH 10 ML IV PUSH ×3 (05:13→20:55)
[2021-03-14 05:21] LABS: Hematocrit 33.9 % (37.0-47.0); Hemoglobin 10.9 g/dL (12.0-15.0); Mean Corpuscular HGB Conc 32.2 g/dl (32-36); Mean Corpuscular Hemoglobin 31.6 pg (26-34); Mean Corpuscular Volume 98.3 fl (80-100); Platelet Count Result 171 k/mm3 (150-375); Red Blood Count 3.45 M/mm3 (4.2-5.4); Red Cell Distribution Width 12.3 % (11.5-14.5); White Blood Count 6.6 K/mm3 (4.5-10.0)
[2021-03-14 05:33] LABS: Alanine Aminotransferase 17 U/L (4-35); Albumin Level 3.8 g/dL (3.5-5.1); Alkaline Phosphatase 79 U/L (38-126); Anion Gap 3 mmol/L (8-16); Aspartate Amino Transferase 17 U/L (14-36); Bilirubin,Total < 0.1 mg/dL (0.2-1.3); Blood Urea Nitrogen 19 mg/dL (7-17); Calcium 9.9 mg/dL (8.4-10.2); Carbon Dioxide 35 mmol/L (22-30); Chloride 100 mmol/L (98-107); Estimated CRCL calculation 65 ml/min; Estimated Glomerular Filt Rate > 60; Glucose 122 mg/dL (65-105); Potassium 3.8 mmol/L (3.4-5.0); Sodium 138 mmol/L (137-145)
[2021-03-14 05:56] LABS: Alveolar/Arterial O2 Gradient 93.5 mmHg; Base Excess ABG 5.4 mEq/l (+/-2.0); Fractional Inspired Oxygen 32 %; HCO3 ABG 31.3 mEq/l (22.0-26.0); Oxygen Content ABG 15.5 %vol (16.0-22.0); Oxygen Saturation ABG 94.6 % (95.0-100.0); Oxyhemoglobin 93.9 % THb (90.0-100.0); PO2 ABG 73.8 mmHg (80.0-100.0); PO2 FiO2 Ratio Arterial Blood 2.31 %; Total Hemoglobin 11.7 g/dL (12.0-18.0); pH ABG 7.398 (7.350-7.450)
[2021-03-14 05:57] LABS: Device NASAL CANNULA; Site Drawn RIGHT BRACHIAL
[2021-03-14] MEDS: BUDESONIDE RESPULE NEB 0.5 MG/2 ML AMP INHALATION ×2 (07:59→19:37)
[2021-03-14] MEDS: predniSONE 20 MG TABLET 40 MG PO (08:41)
[2021-03-14] MEDS: lamoTRIgine 100 MG TABLET PO ×2 (08:43→20:55)
--- NOTE | 2021-03-14 11:09 | PM.IMPN ---
Progress Note: A&P Assessment and Plan (1) Acute exacerbation of chronic obstructive airways disease: Code(s): J44.1 - Chronic obstructive pulmonary disease with (acute) exacerbation Status: Acute Assessment and Plan: 03/14/21 11:09 Her CTA shows no PE today and she is on Xarelto for history of PE. The patient does have COPD and she also has cancer as well. The patient is seeing Dr. melendez for her lung cancer. I did consult Dr. melendez did. The patient has greater oxygen demands. I also noticed that her anemia is worse. Continue with Solu-Medrol neb treatments. Will get cultures sputum and blood cultures. We discussed a COVID test but the patient is refusing. The patient stated that she has not had any fever chills. She has not had any exposure to COVID. We will hold off on a COVID test at this time however she develops a fever then I suggested that we do the COVID test. The patient is requiring oxygen at 5 L per nasal cannula and a non-rebreather at times. The patient told me that she is a DNR although she has a modified code in the computer. She had discussed hospice at 1 point but feels she is not ready for that as of yet. The patient continues to have radiation and chemotherapy. Patient's arterial blood gases 7.347 with a CO2 of 78.2. PO2 63.8. May consider BiPAP if needed. 03/12/21 15:18 patient is a 56-year-old female with history of stage III non-small cell lung cancer seen by oncologist and going through the chemotherapy her last chemotherapy was in October of 2020 patient presented emergency depart with complaint persistent cough and shortness of breath patient is found to have pneumonia we have started the patient on Zosyn and doxycycline, patient also has history of COPD being treated with steroid and updraft, patient states is feeling much better compared to when she arrived patient denies any chest pain shortness of breath palpitation fever or chills. 03/13/21 earlier today patient had a complaint of chest EKG was which was essentially normal, and first tropes was negative, apparently during infusion of antibiotic patient felt chest pain when she was lying in the bed once patient set up in the bed her pain resolved, patient with a stage III non-small cell carcinoma, severe COPD now with pneumonia being treated Zosyn doxycycline Solu-Medrol and updraft, will continue to monitor we have consulted lay out and detail drafter further recommendation to follow. 03/14 today patient states feeling much better compared to when she arrived not a short of breath denies any fever or chills, patient was seen by lay out and detail drafter yesterday did not suspect patient has a pneumonia and stopped the Zosyn continue doxycycline, patient does have a severe COPD was on Solu-Medrol and lay out and detail drafter tapered down to prednisone, will continue to monitor patient be seen by lay out and detail drafter today and further recommendation to follow. (2) Pulmonary embolism: Code(s): I26.99 - Other pulmonary embolism without acute cor pulmonale Status: Acute Assessment and Plan: No active PE at this time. Her CT was negative for PE and she is on Xarelto (3) Anemia: Code(s): D64.9 - Anemia, unspecified Status: Chronic Assessment and Plan: Her hemoglobin is lower than Normal. Will check stool for occult blood and check her CBC in the a.m. (4) Port-A-Cath in place: Code(s): Z95.828 - Presence of other vascular implants and grafts Status: Acute Assessment and Plan: It is in place but her chest x-ray showing some kinking. (5) Malignant neoplasm of upper lobe, left bronchus or lung: Code(s): C34.12 - Malignant neoplasm of upper lobe, left bronchus or lung Status: Chronic Assessment and Plan: I did consult Dr. melendez. Continue with [place]. (6) Bipolar 1 disorder: Code(s): F31.9 - Bipolar disorder, unspecified Status: Chronic Assessment and Plan: Continue with Xanax, Klonopin, Lamictal,
[2021-03-14] MEDS: ALPRAZolam (*CRX) 0.5 MG TABLET 1 MG PO (15:52)
[2021-03-14] MEDS: MULTIVITAMINS /C LUTEIN (CENTRUM SILVER) TABLET *BKC 1 TAB PO (15:53)
[2021-03-14] MEDS: RIVAROXABAN 20 MG TABLET PO (18:03)
[2021-03-14] MEDS: HYDROcodone/acetaminophen (*CRX) 5-325 MG TABLET 1 TAB PO (20:53)
[2021-03-14] MEDS: QUEtiapine FUMARATE 100 MG TABLET 400 MG PO (20:55)
--- NOTE | 2021-03-14 20:55 | PM.PNPUL ---
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 Patient is maintained on darvalumab. patient is followed by her oncologist Dr. Maryana rosa. Patient has CT angiogram of the chest on 03/11/2021 that showed mild increase in the volume of the left upper lobe anterior segmental malignancy with moderate to severe emphysema. Dr. Cooper is consulted. (2) Acute exacerbation of chronic obstructive airways disease: Code(s): J44.1 - Chronic obstructive pulmonary disease with (acute) exacerbation Status: Acute Assessment and Plan: Patient with history of tobacco use with moderate to severe emphysema on her CT scan of the chest for 03/11/2021. At home she was maintained on albuterol inhaler. Currently patient with a COPD exacerbation treated with Solu-Medrol, ipratropium bromide 0.5 mg q.6 and levalbuterol nebulizers 1.25 mg Q 6 hours as she has a history of atrial fibrillation, and budesonide 0.5 mg b.i.d.. Patient is now breathing back at her baseline and I will change her to prednisone 50 mg p.o. q.day and continue this for a total of 5 days of systemic steroids. Systemic steroids were started on 03/11. I will continue the bronchodilators. Patient is being treated with Zosyn and doxycycline for presumed pneumonia but she has no leukocytosis on presentation and there are no focal infiltrates on her CT scan of the chest. I will discontinue the Zosyn and continue the doxycycline for total of 7 days. (3) Chronic respiratory failure with hypoxia and hypercapnia: Code(s): J96.11 - Chronic respiratory failure with hypoxia; J96.12 - Chronic respiratory failure with hypercapnia Status: Acute Assessment and Plan: Patient with chronic hypoxemic respiratory failure from her COPD. Patient states she is on 2-3 L at rest and at night and 4 L wiht ambulation. currently she is on 2 L nasal cannula with saturations 100%. Will wean to maintain saturations 90-94%. Patient will need a home O2 assessment and an overnight oximetry on her BiPAP prior to discharge to determine her oxygen requirements. Patient with chronic hypercapnic respiratory failure from her COPD with an elevated serum bicarb of greater than 40 and a blood gas with a pH of 7.35/78/64 on 4 L nasal cannula. She was noted to be hypercarbic on 10/03/2020 and refused BiPAP at this time but is now willing to entertain BiPAP at this time. The patient would benefit from BiPAP to prevent further deterioration from her disease. Unfortunately patient could not tolerate the pressures with BiPAP and I will initiate noninvasive ventilation with AVAPS mode. I will place her on AVAPS with a backup rate of 16, tidal volume 400, minimal inspiratory pressure 6, maximal inspiratory pressure 20, EPAP 5, 35% FiO2 tonight. I will obtain an ABG in the morning prior to removal of the noninvasive ventilation to assess her for carbon dioxide. Will follow with you. Subjective Date/time seen: 03/14/21 20:55 Jonathon Pacheco is a 56-year-old female seen in follow up for COPD exacerbation and acute on chronic hypercapnic hypoxemic respiratory failure. ABG March 11 pH 7.347 / pCO2 78.2 / pO2 63.8 /HCO3 41.9 / sat 90.1% 4 L/min March 14 pH 7.398 / pCO2 52 / pO2 73.8 /HCO3 31.3 / sat 94.4% 3 L/min She stopped tobacco last May when she was diagnosed with lung cancer and started O2 at the same time. She is using O2 around the clock, 2 L/min at rest, 2-3 with exertion, 2 L/min with sleep. She has stage IIIA squamous cell carcinoma left upper lobe status post chemo radiation between 07/15/2020 and 08/28/2020 and has been maintained on Durvalumab per Dr Sanderson
--- NOTE | 2021-03-14 21:00 | PC.NURSE ---
2100, Patient refused 200 mg of Seroquel. Ordered is 600 mg. States she only wants 400 mg. Call made to Pharmacist States I should put in one time order for 400 mg Seroquel and non-admin the 600 mg Seroquel.
[2021-03-15] VITALS (16 sets, daily range): BP systolic 150; BP diastolic 90; PULSE 84–121; RESP 18–20; TEMP 36.1; O2SAT 82–97
[2021-03-15] MEDS: IPRATROPIUM BR 0.02% INH SOLN 0.5 MG/2.5 ML VIAL INHALATION ×2 (01:48→07:35)
[2021-03-15] MEDS: CENTRAL LINE FLUSH 10 ML IV PUSH (06:36)
[2021-03-15 06:59] LABS: Hematocrit 32.6 % (37.0-47.0); Hemoglobin 10.7 g/dL (12.0-15.0); Mean Corpuscular HGB Conc 32.8 g/dl (32-36); Mean Corpuscular Hemoglobin 31.1 pg (26-34); Mean Corpuscular Volume 94.8 fl (80-100); Mean Platelet Volume 9.1 fl (7.4-10.4); Platelet Count Result 170 k/mm3 (150-375); Red Blood Count 3.44 M/mm3 (4.2-5.4); Red Cell Distribution Width 12.3 % (11.5-14.5); White Blood Count 4.4 K/mm3 (4.5-10.0)
[2021-03-15 07:01] LABS: Alanine Aminotransferase 30 U/L (4-35); Albumin Level 3.5 g/dL (3.5-5.1); Alkaline Phosphatase 96 U/L (38-126); Anion Gap 2 mmol/L (8-16); Aspartate Amino Transferase 25 U/L (14-36); Bilirubin,Total 0.1 mg/dL (0.2-1.3); Blood Urea Nitrogen 18 mg/dL (7-17); Calcium 9.4 mg/dL (8.4-10.2); Carbon Dioxide 36 mmol/L (22-30); Chloride 99 mmol/L (98-107); Estimated CRCL calculation 58 ml/min; Estimated Glomerular Filt Rate > 60; Glucose 86 mg/dL (65-105); Potassium 3.3 mmol/L (3.4-5.0); Sodium 137 mmol/L (137-145)
[2021-03-15] MEDS: BUDESONIDE RESPULE NEB 0.5 MG/2 ML AMP INHALATION (07:35)
[2021-03-15] MEDS: POTASSIUM CHLORIDE 20 MEQ TABLET 40 MEQ PO (09:05)
[2021-03-15] MEDS: lamoTRIgine 100 MG TABLET PO (09:06)
[2021-03-15] MEDS: predniSONE 20 MG TABLET 40 MG PO (09:06)
[2021-03-15] MEDS: MULTIVITAMINS /C LUTEIN (CENTRUM SILVER) TABLET *BKC 1 TAB PO (09:07)
--- NOTE | 2021-03-15 11:42 | PM.PNPUL ---
Progress Note: A&P Assessment and Plan (1) Chronic respiratory failure with hypoxia and hypercapnia: Code(s): J96.11 - Chronic respiratory failure with hypoxia; J96.12 - Chronic respiratory failure with hypercapnia Status: Acute Assessment and Plan: PLAN: 1. OK for discharge today 2. Room air at rest, 2 L/min with exertion and sleep. 3. Dr Rodríguez is arranging nebulizer for her to use at home p.r.n. in place of albuterol inhaler with albuterol from [facility]. She uses albuterol less often that one time a day. 4. She is on no controller meds at home for COPD. She has had a budesonide nebulized treatment this am, and would benefit from having triple treatment daily. I gave her a Trelegy ( fluticasone furoate 100 mcg/ umeclidinium 62.5 mcg / vilanterol 25 mcg) inhaler one puff a day, rinse and spit after use; demonstrated using demo canister; She will start tonight. It is not rivers to send her home without medications. We can arrange meds as an outpatient. Trelegy requires prior authorization, so even sending to pharmacy will not help. Breztri might be an option, another triple inhaler for COPD patients, and the coverage is planned to be increased soon for [place] residents. 5. She will call the office tomorrow for hospital f/u appt within 1-2 weeks; she has no pulmonary doctor 6. We talked about COVID vaccine; she plans to get one. This is critically important. She asked about assisted side effects. Not being snide, she has advanced lung cancer, and she may not have the opportunity to have any terminal gauger side effects with this beast growing in her chest. 7. F/u with Dr Siddiqui. She has her CT report with increased size of DMITRIY anterior segment mass. 8. She would benefit from a Trilogy NPPV at home. We will arrange this as an outpatient. 9. Using O2 appropriately may help decrease CO2 retention, as well. Discussed proper use of O2 including keeping saturation 90-94% with O2 on. If her saturation is higher, decreased O2 flow or take it off. Spent 10 min discussing O2 therapy, goals, use of oximeter, and how to avoid over oxygenation. 10. Prednisone taper. ABG March 11 pH 7.347 / pCO2 78.2 / pO2 63.8 /HCO3 41.9 / sat 90.1% 4 L/min March 14 pH 7.398 / pCO2 52 / pO2 73.8 /HCO3 31.3 / sat 94.4% 3 L/min She has chronic hypoxemic respiratory failure from her COPD with acute decompensation. Patient states she has been on 2-3 L at rest and at night, 4 L with ambulation. Currently she is on 2 L nasal cannula with saturations 100%. We took this off, room air saturation is 94%. Patient with chronic hypercapnic respiratory failure from her COPD with an elevated serum bicarb of greater than 40 and a blood gas with a pH of 7.35/78/64 on 4 L nasal cannula. She was noted to be hypercarbic on 10/03/2020 and refused BiPAP at this time but is now willing to entertain BiPAP at this time. Unfortunately patient could not tolerate the pressures with BiPAP as well as AVAPS with a backup rate of 16, tidal volume 400, minimal inspiratory pressure 6, maximal inspiratory pressure 20, EPAP 5, 35% FiO2. (2) Acute exacerbation of chronic obstructive airways disease: Code(s): J44.1 - Chronic obstructive pulmonary disease with (acute) exacerbation Status: Acute Assessment and Plan: Patient with history of tobacco use with moderate to severe emphysema on her CT scan of the chest for 03/11/2021. At home she was maintained on albuterol inhaler. Currently patient with a COPD exacerbation treated with Solu-Medrol, ipratropium bromide 0.5 mg q.6 and levalbuterol nebulizers 1.25 mg Q 6 hours as she has a history of atrial fibrillation, and budesonide 0.5 mg b.i.d.. Patient is now breathing back at her baseline and I will change her to prednisone 50 mg p.o. q.day and continue this for a total of 5 days
--- NOTE | 2021-03-15 12:02 | HOMEO2EVAL ---
Evaluation was performed at [facility] Home Oxygen Evaluation RC: Home Oxygen (O2) Evaluation Start: 03/15/21 11:16 Freq: ONCE Status: Active Protocol: RPE Activity Type Activity Date Activity User E-Sign Co-Sign Detail Recorded Client Recorded Date Recorded By Document 03/15/21 11:48 TK [email or web address] 03/15/21 12:02 TK Document 03/15/21 11:49 TK [email or web address] 03/15/21 12:02 TK Document 03/15/21 11:50 TK [email or web address] 03/15/21 12:02 TK Document 03/15/21 11:52 TK [email or web address] 03/15/21 12:02 TK Document 03/15/21 11:56 TK [email or web address] 03/15/21 12:02 TK Document 03/15/21 11:59 TK [email or web address] 03/15/21 12:02 TK 03/15/21 03/15/21 03/15/21 11:48 11:49 11:50 Home O2 Evaluation Test Phase Resting Exercise Exercise Oxygen Delivery Room Air Room Air Room Air Oxygen Flow Rate (L/min) Fraction of Inspired Oxygen (%) 21 21 21 Pulse Oximetry (90-100 %) 97 90 82 L Pulse Rate (60-100 beats/min) 121 H 118 H 97 Activity Tolerance Good Good Good Rating of Perceived Dyspnea (PD) +2 Mild, Some +2 Mild, Some Difficulty, Difficulty, Noticeable to Noticeable to the Observer the Observer Ambulation Distance (feet) 80 Home Oxygen Evaluation Comments 1 L NC applied. Treatment Charges O2 Evaluation - Inpatient 03/15/21 03/15/21 03/15/21 11:52 11:56 11:59 Home O2 Evaluation Test Phase Exercise Exercise Resting Oxygen Delivery Nasal Cannula Nasal Cannula Nasal Cannula Oxygen Flow Rate (L/min) 1 2 2 Fraction of Inspired Oxygen (%) Pulse Oximetry (90-100 %) 85 L 91 97 Pulse Rate (60-100 beats/min) 102 H 110 H 118 H Activity Tolerance Good Good Good Rating of Perceived Dyspnea (PD) +2 Mild, Some +2 Mild, Some Difficulty, Difficulty, Noticeable to Noticeable to the Observer the Observer Ambulation Distance (feet) 40 120 Home Oxygen Evaluation Comments increased to 2L O2 removed when NC pt was resting . Treatment Charges
--- NOTE | 2021-03-15 12:26 | PM.DS ---
DS: Admitting Diagnosis Admitting Diagnosis Admitting Diagnosis: Chief Complaint: Dyspnea on exertion DS: Discharge Diagnosis Discharge Diagnosis (1) Acute exacerbation of chronic obstructive airways disease: Code(s): J44.1 - Chronic obstructive pulmonary disease with (acute) exacerbation Status: Acute Assessment and Plan: 03/14/21 11:09 Her CTA shows no PE today and she is on Xarelto for history of PE. The patient does have COPD and she also has cancer as well. The patient is seeing Dr. melendez for her lung cancer. I did consult Dr. melendez did. The patient has greater oxygen demands. I also noticed that her anemia is worse. Continue with Solu-Medrol neb treatments. Will get cultures sputum and blood cultures. We discussed a COVID test but the patient is refusing. The patient stated that she has not had any fever chills. She has not had any exposure to COVID. We will hold off on a COVID test at this time however she develops a fever then I suggested that we do the COVID test. The patient is requiring oxygen at 5 L per nasal cannula and a non-rebreather at times. The patient told me that she is a DNR although she has a modified code in the computer. She had discussed hospice at 1 point but feels she is not ready for that as of yet. The patient continues to have radiation and chemotherapy. Patient's arterial blood gases 7.347 with a CO2 of 78.2. PO2 63.8. May consider BiPAP if needed. 03/12/21 15:18 patient is a 56-year-old female with history of stage III non-small cell lung cancer seen by oncologist and going through the chemotherapy her last chemotherapy was in October of 2020 patient presented emergency depart with complaint persistent cough and shortness of breath patient is found to have pneumonia we have started the patient on Zosyn and doxycycline, patient also has history of COPD being treated with steroid and updraft, patient states is feeling much better compared to when she arrived patient denies any chest pain shortness of breath palpitation fever or chills. 03/13/21 earlier today patient had a complaint of chest EKG was which was essentially normal, and first tropes was negative, apparently during infusion of antibiotic patient felt chest pain when she was lying in the bed once patient set up in the bed her pain resolved, patient with a stage III non-small cell carcinoma, severe COPD now with pneumonia being treated Zosyn doxycycline Solu-Medrol and updraft, will continue to monitor we have consulted assistant restaurant general manager further recommendation to follow. 03/14 today patient states feeling much better compared to when she arrived not a short of breath denies any fever or chills, patient was seen by assistant restaurant general manager yesterday did not suspect patient has a pneumonia and stopped the Zosyn continue doxycycline, patient does have a severe COPD was on Solu-Medrol and assistant restaurant general manager tapered down to prednisone, will continue to monitor patient be seen by assistant restaurant general manager today and further recommendation to follow. (2) Pulmonary embolism: Code(s): I26.99 - Other pulmonary embolism without acute cor pulmonale Status: Acute Assessment and Plan: No active PE at this time. Her CT was negative for PE and she is on Xarelto (3) Anemia: Code(s): D64.9 - Anemia, unspecified Status: Chronic Assessment and Plan: Her hemoglobin is lower than Normal. Will check stool for occult blood and check her CBC in the a.m. (4) Port-A-Cath in place: Code(s): Z95.828 - Presence of other vascular implants and grafts Status: Acute Assessment and Plan: It is in place but her chest x-ray showing some kinking. (5) Malignant neoplasm of upper lobe, left bronchus or lung: Code(s): C34.12 - Malignant neoplasm of upper lobe, left bronchus or lung Status: Chronic Assessment and Plan: I did consult Dr. melendez. Continue with [place]. (6) Bipolar 1 disorder: Code(s): F31.9 - Bipolar dis
== END 2021-03-15 13:03 | disposition home or self-care (01) | DRG 190 ==
LOC: ANHED 11:31 → ANHIMU 16:46 → ANH3MEDSUR 03-15 12:22 → ANHIMU 03-31 11:03
PROVIDERS: Internal Medicine Pulmonary Disease; Admitting Provider Family Medicine; Emergency Provider General Practice; PCP Family Medicine; Visit Provider Family Medicine
DX: J43.9 Emphysema, unspecified (principal); J96.21 Acute and chronic respiratory failure with hypoxia; J96.22 Acute and chronic respiratory failure with hypercapnia; C34.12 Malignant neoplasm of upper lobe, left bronchus or lung; D64.9 Anemia, unspecified; F31.9 Bipolar disorder, unspecified; Z86.711 Personal history of pulmonary embolism; Z99.81 Dependence on supplemental oxygen; Z90.49 Acquired absence of other specified parts of digestive tract; Z87.891 Personal history of nicotine dependence; Z79.01 Long term (current) use of anticoagulants
CPT/HCPCS: 36415; 36600; 71045; 71275; 80048; 80053; 82375; 82805; 83050; 83605; 83735; 83880; 84484; 85025; 85027; 85055; 85610; 85730; 86140; 87040; 87070; 87205; 93005; 94002; 94003; 94618; 94640; 96361; 96374; 96375; 96376; 99285; A9270; G0378; J1642; J2060; J2543; J2930; J7120; J7512; Q9967

== ENCOUNTER 2021-05-05 14:15 | Outpatient (CLI) | payer MEDICARE, SELFPAY ==
[2021-05-05] VITALS (7 sets, daily range): PULSE 100–120; O2SAT 85–93
--- NOTE | 2021-05-05 15:51 | HOMEO2EVAL ---
Evaluation was performed at [facility] Home Oxygen Evaluation RC: Home Oxygen (O2) Evaluation Start: 05/05/21 15:47 Freq: Status: Active Protocol: RPE Activity Type Activity Date Activity User E-Sign Co-Sign Detail Recorded Client Recorded Date Recorded By Document 05/05/21 14:30 GAYATRI [email or web address] 05/05/21 15:51 GAYATRI Document 05/05/21 14:31 GAYATRI [email or web address] 05/05/21 15:51 GAYATRI Document 05/05/21 14:32 GAYATRI [email or web address] 05/05/21 15:51 GAYATRI Document 05/05/21 14:35 GAYATRI [email or web address] 05/05/21 15:51 GAYATRI Document 05/05/21 14:36 GAYATRI [email or web address] 05/05/21 15:51 GAYATRI Document 05/05/21 14:37 GAYATRI [email or web address] 05/05/21 15:51 GAYATRI Document 05/05/21 14:45 GAYATRI [email or web address] 05/05/21 15:51 GAYATRI 05/05/21 05/05/21 05/05/21 14:30 14:31 14:32 Home O2 Evaluation Test Phase Resting Resting Resting Oxygen Delivery Room Air Nasal Cannula Nasal Cannula Oxygen Flow Rate (L/min) 1 2 Pulse Oximetry (90-100 %) 87 L 87 L 92 Pulse Rate (60-100 beats/min) 100 Ambulation Distance (feet) Home Oxygen Evaluation Comments Treatment Charges O2 Evaluation - Outpatient 05/05/21 05/05/21 05/05/21 14:35 14:36 14:37 Home O2 Evaluation Test Phase Exercise Exercise Exercise Oxygen Delivery Nasal Cannula Nasal Cannula Nasal Cannula Oxygen Flow Rate (L/min) 2 3 4 Pulse Oximetry (90-100 %) 85 L 86 L 90 Pulse Rate (60-100 beats/min) 120 H Ambulation Distance (feet) 250 Home Oxygen Evaluation Comments PT REQUIRES 2 L AT REST AND 4 L WITH EXERTION Treatment Charges 05/05/21 14:45 Home O2 Evaluation Test Phase Resting Oxygen Delivery Nasal Cannula Oxygen Flow Rate (L/min) 2 Pulse Oximetry (90-100 %) 93 Pulse Rate (60-100 beats/min) 101 H Ambulation Distance (feet) Home Oxygen Evaluation Comments Treatment Charges
--- NOTE | 2021-05-05 15:52 | PCRCNOTE ---
HOME O2 EVAL FAXED TO OFFICE STAFF, PT STATED SHE WAS SET UP BY PCP, DME IS [facility] OFFICE STAFF WELL PCP WILL HAVE UPDATED HOME O2 EVAL
--- NOTE | 2021-05-06 12:48 | WPDPFTINT ---
PFT Procedure Performed PFT Procedure Performed Spirometry with Pre/Post Bronchodilator Plethysmography (Lung Vol) Diffusing Cap (DLCO) Flow Vol Loop PFT Interpretation This is a pulmonary function test with pre and post-bronchodilator spirometry, plethysmography and diffusing capacity. The test was performed and results interpreted in accordance with the 2019 and 2005 ATS/ERS Task Force guidelines respectively using the Global Lung Function Initiative-2012 reference equations. Patient demonstrated good effort and cooperation. Reproducibility criteria were met. The quality of the pre bronchodilator spirometry maneuver was Grade A and post bronchodilator spirometry maneuver was Grade A. Findings: Spirometry: There is decreased maximal expiratory airflow at all lung volumes with a concave expiratory flow tracing. The pre bronchodilator FVC is 1.36 L, 40% predicted. The pre bronchodilator FEV1 is 0.40 L, 15% predicted. The FEV1: FVC ratio is 29%. The post bronchodilator FVC is 1.74 L, representing a 28% increase. The post bronchodilator FEV1 is 0.57 L, representing a 41% increase. Plethysmography: The total lung capacity is 9.18 L, 177% predicted. Functional residual capacity is 8.27 L, 282% predicted. The residual volume is 7.82 L, 396% predicted. Diffusing capacity: The absolute diffusion capacity is 4.6, 20% predicted. The diffusing capacity corrected for alveolar volume is 1.92, 43% predicted. Impression: There is a very severe obstructive abnormality with significant improvement after inhaling a single dose of albuterol. The increase in residual volume is consistent with air trapping from an obstructive abnormality. Hyperinflation is present is demonstrated by the increase in functional residual capacity and total lung capacity and is consistent with an obstructive abnormality. The absolute diffusing capacity is moderately decreased and normalizes when corrected for alveolar volume. Impression: There is a moderately severe restrictive ventilatory abnormality. The spirometry is normal without evidence of an obstructive abnormality. There is no significant improvement after inhaling a single dose of albuterol. The absolute diffusing capacity is severely decreased and remains moderately decreased when corrected for alveolar volume. There are no prior studies for comparison
== END 2021-05-05 14:16 | disposition home or self-care (01) ==
PROVIDERS: PCP Family Medicine; Visit Provider Internal Medicine Critical Care Medicine
DX: J44.9 Chronic obstructive pulmonary disease, unspecified (principal)
CPT/HCPCS: 94060; 94618; 94726; 94729

== ENCOUNTER 2021-06-15 10:47 | Outpatient (CLI) | payer MEDICARE, SELFPAY ==
--- NOTE | ~2021-06-15 | CT_ITS ---
EXAMINATION:CT diagnostic chest w con DATE: 06/15/2021 11:25 INDICATION: Malignant neoplasm of the upper lobe of left lung. TECHNIQUE: Computed tomography (CT) of the chest was performed with 75 mL Omnipaque 350 intravenous c ontrast. Automated exposure control and iterative reconstruction technique were employed. The dose-le ngth product (DLP) was 146.82 mGy-cm. COMPARISON: Chest CT 03/11/2021, PET/CT 07/01/20 FINDINGS: There is severe emphysema. There is a 3.4 x 2.3 x 1.3 cm mass in left upper lobe, which pre viously measured 3.2 x 2.4 x 1.2 cm. There are scattered foci of atelectasis and scarring in the lung s. No pleural effusion. The heart size is normal. No pericardial effusion. There is a right internal jugular port with tip in superior vena cava. There are no pathologically enlarged lymph nodes. There is mild thoracic spondylosis. IMPRESSION: 1. Stable mass in left lung upper lobe, consistent with primary bronchogenic carcinoma. 2. Severe emphysema. Reviewed, dictated and finalized at location A. IMPRESSION: 1. Stable mass in left lung upper lobe, consistent with primary bronchogenic ca rcinoma. 2. Severe emphysema.
== END 2021-06-15 10:48 | disposition home or self-care (01) ==
LOC: ANHIMG 10:53
PROVIDERS: PCP Family Medicine; Visit Provider Internal Medicine Hematology & Oncology
DX: C34.12 Malignant neoplasm of upper lobe, left bronchus or lung (principal); J43.9 Emphysema, unspecified
CPT/HCPCS: 71260; Q9967

== ENCOUNTER 2021-09-28 09:57 | Outpatient (CLI) | payer MEDICARE, SELFPAY ==
--- NOTE | ~2021-09-28 | CT_ITS ---
EXAMINATION: CT diagnostic chest w con DATE: 09/28/2021 10:29 INDICATION: MALIGNANT NEOPLASM OF UPPER LT LOBE TECHNIQUE: Computed tomography (CT) of the chest was performed with 75 mL Omnipaque-350 intravenous c ontrast. Additional 3D reconstructions utilizing coronal maximum intensity projection (MIP) were perf ormed. Automated exposure control and iterative reconstruction technique were employed. The dose-miriam th product was 148.87 mGy-cm. COMPARISON: 06/15/2021 and 10/03/2020 FINDINGS: Severe emphysema. Slight decrease in size of a previously 3.2 x 2.1 x 1.1 cm left upper lobe mass cur rently measuring 3.0 x 2.1 x 1.0 cm. No interval change in scattered foci of peripheral predominant a telectasis/scarring in both lungs. No pneumonia, pulmonary edema, pleural effusion or pneumothorax. H eart size is normal. No pericardial effusion. Thoracic aorta is normal in caliber with no dissection. Right subclavian central venous port catheter with distal tip at the caudal superior vena cava. No p athologically enlarged abdominal or pelvic lymphadenopathy. Unchanged likely benign 9 mm low-attenuat ion splenic lesion IMPRESSION: 1. No significant change in a left upper lobe mass consistent with primary bronchogenic carcinoma. 2. Severe emphysema. Reviewed, dictated and finalized at location A. RETE PUMP OPERATOR HELPER IMPRESSION: 1. No significant change in a left upper lobe mass consistent with primary bron chogenic carcinoma. 2. Severe emphysema.
== END 2021-09-28 09:58 | disposition home or self-care (01) ==
LOC: ANHIMG 10:03
PROVIDERS: PCP Family Medicine; Visit Provider Internal Medicine Hematology & Oncology
DX: C34.12 Malignant neoplasm of upper lobe, left bronchus or lung (principal); J43.9 Emphysema, unspecified
CPT/HCPCS: 71260; Q9967

== ENCOUNTER 2021-12-02 12:05 | Outpatient (CLI) | payer MEDICARE, SELFPAY ==
[2021-12-02 17:24] LABS: Hemoglobin A1C 5.3 % (<5.7)
== END 2021-12-02 12:06 | disposition home or self-care (01) ==
LOC: ANHLAB 12:06
PROVIDERS: PCP Family Medicine; Visit Provider Internal Medicine Hematology & Oncology
DX: E87.1 Hypo-osmolality and hyponatremia (principal); R73.09 Other abnormal glucose; R74.8 Abnormal levels of other serum enzymes; J96.02 Acute respiratory failure with hypercapnia
CPT/HCPCS: 36415; 83036; 84443

== ENCOUNTER 2021-12-28 10:33 | Outpatient (CLI) | payer MEDICARE, SELFPAY ==
--- NOTE | ~2021-12-28 | CT_ITS ---
EXAMINATION: CT diagnostic chest w con DATE: 12/28/2021 11:06 INDICATION: Malignant neoplasm of the left upper lobe TECHNIQUE: Transaxial computed tomographic images of the chest were obtained after the administration of 75 cc of Omnipaque 350 intravenous contrast. The dose-length product (DLP) was 145.82 mGy-cm. Ite rative reconstruction was used. COMPARISON: 09/28/2021 FINDINGS: There is severe emphysema. A 4.6 x 2.0 cm left upper lobe mass is seen measuring 3.0 x 2.1 cm. There are new airspace opacities of the right lung apex and lower lobes. There is no pleural effu miriam or pneumothorax. A right subclavian Port-A-Cath ends with its tip in the distal superior vena ca va. No pathologically enlarged thoracic lymph nodes are identified. The heart size is normal. There i s moderate thoracic spondylosis. The gallbladder is surgically absent. There is mild enlargement of t he common bile duct and central intrahepatic ducts which is likely due to post cholecystectomy state. There is an unchanged chronic 9 mm hypoattenuating lesion of the spleen. IMPRESSION: 1. Left upper lobe mass with increase in size concerning for worsening primary bronchogenic carcinoma . Reviewed, dictated and finalized at location A. TIC ATTACHER OVERLOCK IMPRESSION: 1. Left upper lobe mass with increase in size concerning for worsening primary bronchogenic carcinoma.
== END 2021-12-28 10:34 | disposition home or self-care (01) ==
LOC: ANHIMG 10:41
PROVIDERS: PCP Family Medicine; Visit Provider Internal Medicine Hematology & Oncology
DX: C34.12 Malignant neoplasm of upper lobe, left bronchus or lung (principal)
CPT/HCPCS: 71260; Q9967

== ENCOUNTER 2022-01-26 12:12 | Outpatient (CLI) | payer MEDICARE, SELFPAY ==
--- NOTE | ~2022-01-26 | PE_ITS ---
EXAMINATION: PET skull to mid thigh DATE: 01/26/2022 14:16 INDICATION: Malignant neoplasm of lung. TECHNIQUE: Blood glucose level was 92 mg/dL. 9.9 mCi of 18-fluorodeoxyglucose (18-FDG) was administer ed i.v. Low dose computed tomography (CT) images were acquired from the base of the brain to the prox imal thighs for attenuation correction and anatomic localization. Automated exposure control was empl oyed. Dose-length product (DLP) was 270 mGy-cm. Positron emission tomography (PET) images were acquir ed in the same distribution. COMPARISON: Chest CT 12/28/2021, 10/03/20, 03/11/21 FINDINGS: Head/neck: There is increased activity in the pharynx, oral cavity, major salivary glands, and glotti s without abnormal CT correlate, likely physiologic. There are no pathologically enlarged lymph nodes . Chest: There is severe emphysema. There is a 13 mm nodule in right lung upper lobe with maximum SUV o f 6.1. There are scattered small peripheral airspace opacities in the lungs without increased activit y, likely atelectasis and scarring. There is a 4.6 x 3.2 cm mass in anterior segment left upper lobe with maximum SUV of 3.4. No pleural effusion. The heart size is normal. No pericardial effusion. Ther e is a right subclavian port with tip at superior cavoatrial junction. There is mild chronic height l oss of multiple vertebral bodies. There is mild thoracic spondylosis. Abdomen/pelvis/proximal thighs: The liver is normal. There are changes of cholecystectomy. The spleen , pancreas, adrenal glands, and kidneys are normal. There is diverticulosis of the colon without evid ence of diverticulitis. There are no dilated loops of bowel. There are no pathologically enlarged lym ph nodes. There is no free intraperitoneal fluid. There is severe lower lumbar spondylosis. IMPRESSION: 1. Mass in anterior segment left upper lobe with increased activity, worsened from 09/28/21 and impro nando from 12/28/21, consistent with primary bronchogenic carcinoma and changes of radiation therapy. 2. 13 mm right upper lobe pulmonary nodule with increased activity, new from 09/28/21 and worsened fr om 11 mm on 12/28/21. This finding may be malignancy or inflammation/infection. 3. Severe emphysema. Reviewed, dictated and finalized at location A. IMPRESSION: 1. Mass in anterior segment left upper lobe with increased activity, worsened f rom 09/28/21 and improved from 12/28/21, consistent with primary bronchogenic ca rcinoma and changes of radiation therapy. 2. 13 mm right upper lobe pulmonary nodule with increased activity, new from and worsened from 11 mm on 12/28/21. This finding may be malignancy or in flammation/infection. 3. Severe emphysema.
[2022-01-26 12:44] LABS: Glucose Point of Care 92 mg/dl (65-105)
== END 2022-01-26 12:13 | disposition home or self-care (01) ==
LOC: ANHIMG 12:13
PROVIDERS: PCP Family Medicine; Visit Provider Internal Medicine Hematology & Oncology
DX: C34.12 Malignant neoplasm of upper lobe, left bronchus or lung (principal); R91.8 Other nonspecific abnormal finding of lung field; J43.9 Emphysema, unspecified
CPT/HCPCS: 78815; A9552

== ENCOUNTER 2022-03-15 14:04 | Outpatient (CLI) | payer MEDICARE, SELFPAY ==
--- NOTE | ~2022-03-15 | CT_ITS ---
EXAMINATION: CT diagnostic chest w con DATE: 03/15/2022 14:43 INDICATION: MALIGNANTN NEOPLASM OF UPPER LOBE OF LEFT LUNG TECHNIQUE: Computed tomography (CT) of the chest was performed with 75 mL Omnipaque-350 intravenous c ontrast. Additional 3D reconstructions utilizing coronal maximum intensity projection (MIP) were perf ormed. Automated exposure control and iterative reconstruction technique were employed. The dose-miriam th product was 134.38 mGy-cm. COMPARISON: PET/CT dated 01/26/2022 and 12/28/2021 FINDINGS: Severe emphysema. Interval increase in size of a previously 9 mm, currently 11 mm right apical nodule which demonstrated increased FDG uptake on intervening PET study. Unchanged mild peripheral linear s carring at the posterior aspect of the bilateral upper lobes. There is a new 4.3 x 3.0 cm region of c onsolidation with central air bronchograms in the perihilar region of the right upper lobe with more peripheral reticular nodular opacities in the posterior segment of the right upper lobe which given t he pattern of disease and rapid development, essentially new since PET study one month prior most con sistent with pneumonia. Unchanged passing 1.5 x 1.1 cm region of peripheral likely pleural-parenchyma l scarring in the right upper lobe along the cephalad-most aspect of the major fissure which is witho ut increased FDG uptake on prior PET study. Interval decrease in size of a FDG avid mass with irregul ar lobular and spiculated margins at the anterior segment of the left upper lobe which previously jayden sured 4.9 x 2.3 cm with current corresponding measurements of 3.4 x 2.0 cm. No pulmonary edema or ple ural effusion. Heart size is normal. No pericardial effusion. Thoracic aorta is normal in caliber wit h no dissection. Increase in size of a previously 1.2 x 0.9 cm right hilar lymph node currently measu ring 1.9 x 1.0 cm. No other pathologically enlarged thoracic lymphadenopathy. Unchanged 1 cm hypoenha ncing lesion in the spleen which is without evident increased FDG uptake on the intervening PET study , likely benign. Mild to moderate thoracic spondylosis with multiple Schmorl's nodes throughout the t horacic spine. No suspicious lytic or blastic bone lesions. IMPRESSION: 1. New region of right perihilar consolidation and more peripheral reticulonodular opacities in the r ight upper lobe consistent with pneumonia. 2. Improvement since 12/28/2021 and a mass in the anterior segment of left upper lobe which was previo usly FDG avid consistent with primary bronchogenic carcinoma and changes of radiation treatment. 3. Slight increase in size of a now 11 mm right apical previously FDG avid nodule suspicious for meta static disease with differential including inflammation/infection. 4. Interval increase in size of a mildly enlarged right hilar lymph node which could be either reacti ve or metastatic. 5. Severe emphysema. Reviewed, dictated and finalized at location A. IMPRESSION: 1. New region of right perihilar consolidation and more peripheral reticulonodu lar opacities in the right upper lobe consistent with pneumonia. 2. Improvement since 12/28/2021 and a mass in the anterior segment of left upper lobe which was previously FDG avid consistent with primary bronchogenic carcin sukumar and changes of radiation treatment. 3. Slight increase in size of a now 11 mm right apical previously FDG avid nodu le suspicious for metastatic disease with differential including inflammation/i nfection. 4. Interval increase in size of a mildly enlarged right hilar lymph node which could be either reactive or metastatic. 5. Severe emphysema.
== END 2022-03-15 14:05 | disposition home or self-care (01) ==
LOC: ANHIMG 14:14
PROVIDERS: PCP Family Medicine; Visit Provider Internal Medicine Hematology & Oncology
DX: C34.12 Malignant neoplasm of upper lobe, left bronchus or lung (principal); R91.8 Other nonspecific abnormal finding of lung field; R59.0 Localized enlarged lymph nodes; J43.9 Emphysema, unspecified
CPT/HCPCS: 36415; 71260; 80053; 84443; 85025; 85610; Q9967

== ENCOUNTER 2022-06-30 13:43 | Outpatient (CLI) | payer MEDICARE, SELFPAY ==
--- NOTE | ~2022-06-30 | CT_ITS ---
EXAMINATION: CT diagnostic chest w con DATE: 06/30/2022 14:27 INDICATION: Malignant neoplasm of the upper lobe of the left lung TECHNIQUE: Transaxial computed tomographic images of the chest were obtained after the administration of 75 cc of Omnipaque 350 intravenous contrast. The dose-length product (DLP) was 03/15/2022 mGy-cm. I terative reconstruction was used. COMPARISON: 03/15/2022, 01/26/2022, 12/28/2021 FINDINGS: There are subpleural opacities in the anterior segment of the left upper lobe which demonst rates slight decrease in overall thickness since the comparison examination. Perihilar right upper lo be opacities persist with slight worsening and extension to the lateral pleural surface. There appear s to be a small central area of necrosis in the right upper lobe on axial axial image 37. Linear opac ities have developed in the left upper lobe (images 42 through 50. There is right hilar lymphadenopat hy. There is severe emphysema. No pleural effusion or pneumothorax. The heart size is normal. There i s a stable 13 mm nodule of the right lung apex. A right subclavian Port-A-Cath ends with its tip in t he distal superior vena cava. The gallbladder is surgically absent. There is moderate thoracic spondy losis. IMPRESSION: 1. Worsening right upper lobe opacities with small area of central necrosis. Findings could reflect w orsening infection however consider bronchoscopy. 2. Subpleural mass of the left upper lobe with slight decrease in size, likely treatment change. 3. Developing linear opacities of the left upper lobe which could be infectious or inflammatory howev er attention on subsequent examinations is recommended. 4. Right hilar lymphadenopathy, reactive versus metastatic. #5 persistent nodule in the right lung ap ex which previously demonstrated FDG uptake, concerning for malignancy. Reviewed, dictated and finalized at location A. IMPRESSION: 1. Worsening right upper lobe opacities with small area of central necrosis. Fi ndings could reflect worsening infection however consider bronchoscopy. 2. Subpleural mass of the left upper lobe with slight decrease in size, likely treatment change. 3. Developing linear opacities of the left upper lobe which could be infectious or inflammatory however attention on subsequent examinations is recommended. 4. Right hilar lymphadenopathy, reactive versus metastatic. #5 persistent nodul e in the right lung apex which previously demonstrated FDG uptake, concerning f or malignancy.
== END 2022-06-30 13:44 | disposition home or self-care (01) ==
PROVIDERS: PCP Family Medicine; Visit Provider Internal Medicine Hematology & Oncology
DX: C34.12 Malignant neoplasm of upper lobe, left bronchus or lung (principal); R91.8 Other nonspecific abnormal finding of lung field; R59.0 Localized enlarged lymph nodes
CPT/HCPCS: 71260; Q9967

== ENCOUNTER 2022-08-03 00:51 | Day surgery (SDC) | payer MEDICARE, SELFPAY ==
[2022-07-28 10:57] VITALS: BMI 20.8
--- NOTE | 2022-07-28 11:08 | PC.NURSE ---
Report to the Outpatient Waiting Room, entrance under the green pavilion located off [facility], at time 1400 on date 08/03/22. OR Time: 1500. Time changes happen often and if your time is changed the preop area will call you the afternoon before. - You and your visitor will be asked to self-screen and do not enter if you have any COVID symptoms. - Only one visitor and NO children visitors are allowed at this time. - The patient visitor is requested to leave or wait in car when not with patient due to restrictions. - A mask is required within the hospital. Patients may have LIGHT BREAKFAST/LUNCH Take the following medications with a SIP of water the morning of surgery: PRESCRIBED Medications to discontinue per physician: WARFARIN (PER PATIENT) Date to take last dose: 07/28 (PER PATIENT) Please no make-up, nail luxembourgish, hairspray, perfume, deodorant, or body powder the day of surgery. No jewelry (including any body piercings) or valuables the day of surgery, leave them at home. Please take a shower or bath the night before, or the morning of, surgery with an antibacterial soap. Wear comfortable, loose fitting clothing. - Jewelry must be removed prior to entering the operating room. Rings and piercings that are not removed may be cut off. - The hospital will not accept responsibility for valuables. - Please leave all valuables, including medications, at home the day of surgery. If you are going home after surgery, YOU MAY DRIVE YOURSELF Follow any additional instructions given to you from your surgeon. If you or anyone in your household have experienced Covid symptoms in the past week, please notify your surgeon or the nurse liaison at the phone number below for possible testing. Telephone instructions given to AURELIO ROMERO and asked if any additional questions and then verbalized understanding. Patient advised to call surgeon office or pre surgery nurse liaison [phone] if any additional questions.
--- NOTE | 2022-08-02 20:07 | PM.HPGS ---
History of Present Illness History of Present Illness Consent: Risks, benefits, and alternatives have been discussed and questions answered. Patient agrees to proceed with procedure. 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 She has undergone both radiation and chemo. At this point she is under maintenance therapy and being observed. Recent CT scan showed possible new changes in the right upper lobe,and stable left lung tumor, however patient wishes no further treatment and was having pain near her port site. Therefore, we have been asked to remove the port and catheter as she has been declining any further chemotherapy. She is on chronic home oxygen. Review of Systems Constitutional: Constitutional: Reports no additional constitutional complaints, Reports fatigue and Denies malaise Eyes: Eyes: Denies change in vision and Denies loss of vision ENT: Reports Normal hearing present, Denies change in voice, Denies dizziness, Denies hoarseness and Denies sore throat Cardiovascular: Cardiovascular: Denies chest pain, Denies leg edema and Denies dyspnea Respiratory: Respiratory: Denies cough, Denies dyspnea and Denies wheezing Comments: Diagnosis with left upper lobe lung cancer in May of 2020. History of passed number embolus, on chronic anticoagulation with warfarin. History of COPD On chronic home oxygen. Gastrointestinal: Gastrointestinal: Denies hematochezia, Denies change in bowel habits and Denies heartburn Genitourinary: Genitourinary: Denies urinary frequency and Denies urinary incontinence Neurologic: Reports Normal hearing present, Denies confusion, Denies dizziness, Denies loss of vision, Denies memory loss and Denies seizure-like activity Psychiatric: Psychiatric: Denies confusion, Denies depression and Denies memory loss Endocrine: Endocrine: Denies cold intolerance and Reports fatigue Comments: history of anxiety depression on medication. Hematologic/Lymphatic: Hematologic/Lymphatic: Denies easy bleeding and Denies easy bruising Allergic/Immunologic: Allergic/Immunologic: Denies wheezing PMFSH Past Medical History Medical History Anemia Anxiety and depression Bipolar 1 disorder COPD (chronic obstructive pulmonary disease) Malignant neoplasm of upper lobe, left bronchus or lung Surgical History Surgical History H/O tubal ligation History of cholecystectomy Family History Family History Mother Lung cancer Hypertension Father Lung cancer Sibling Ovarian cancer Social History Social History Social History: The patient is and she is disabled. The patient was smoking 2 packs of cigarettes a day and smoked for 41 years. The patient stated she recently quit smoking. She occasionally has an alcoholic beverage. She uses marijuana but no illicit drugs. Patient is a DNR and her sister knows what she wants. Although she did not say that her sister was officially the power camera tuning engineer. The patient has 1 son. The patient stated when it is time she will be ready to go to hospice. Smoking packs per day: 0.75 Smoking cigarettes per day: 15.0 Years smoked: 46 Smoking pack-years: 34.50 Smoking status: Current every day smoker Tobacco type: cigarettes Second hand tobacco smoke exposure: Yes Additional smoking assessment comments: SMOKED 2 PPD X ~15 YEARS Alcohol intake: current Alcohol use details: 3/MONTH Substance use: current Substance use type: marijuana Other substance usage details: EDIBLES, SMOKE Living arrangements: alone Gender identity (if verbalized by the patient): Female
--- NOTE | 2022-08-03 14:44 | WPDHPUPDATE1 ---
History and Physical Update Update Date/Time: 08/03/22 14:44 History and Physical has been reviewed, including an updated exam of the patient. There are NO changes in the patient's condition. Risks, benefits, and alternatives have been discussed and questions answered. Patient agrees to proceed with procedure.
[2022-08-03 15:00] VITALS: BP 169/79; PULSE 82; RESP 16; O2SAT 94
[2022-08-03 15:13] VITALS: BP 166/79; PULSE 82; RESP 16; O2SAT 100
[2022-08-03 15:28] VITALS: BP 155/74; PULSE 67; RESP 16; O2SAT 100
[2022-08-03 15:38] VITALS: BP 147/74; PULSE 82; RESP 16; O2SAT 99
[2022-08-03 15:45] VITALS: BP 160/85; PULSE 85; RESP 16; O2SAT 99
--- NOTE | 2022-08-03 15:56 | P.OP_ITS ---
Procedure Note - Detailed Date of Procedure 08/03/22 Pre-op Diagnosis 1. Indwelling Port-A-Cath 2. malignant neoplasm of lung Post-op Diagnosis Same Procedure Performed Removal of Angelica-cath Surgeon Thai Saez MD Control Systems Drafting Officer none Anesthesia MAC and Local (2% Xylocaine with Epi) Indications Patient has had a Port-A-Cath in for chemotherapy in the past. Now no longer in use. Plant to remove under local anesthetic. Findings Normal appearing Port-A-Cath upon removal which was completely intact. No abnormalities within the incision. Description of Procedure Prior to the procedure the patient was seen in the holding area and the area of proposed surgery was marked. All questions were answered and the patient wished to proceed with removal of the Port-A-Cath. The patient was brought to the operating room and placed supine. The entire [right][left] neck, chest, and shoulder were prepped with chlorhexidine. The area was draped off. Time-out was performed confirming patient and site of surgery. Following this a 15 blade knife was used to make incision directly on the scar from the previous port placement. This was done after infiltrating local anesthetic into the area of and inferior to the scar and into the area of the pocket containing the port to some degree using 1% xylocaine with epinephrine. Following this we carefully dissected down to the junction of the port and catheter. Bovie cautery with needle-tip was used to carefully incise the capsule around the port and free up the scar tissue around the junction of the port and catheter. Two Prolene sutures that were holding the port to the underlying fascia were carefully excised with a 15 blade knife and mosquito hemostats. Following this the port was brought up and out of the pocket. Then watching the patient's respirations I carefully removed the catheter in one smooth pull while applying pressure in the lower right neck area at the catheter exit site as the patient was breathing out. Pressure was held for 1 minute. I used Bovie cautery on some the subcutaneous tissues as we waited for good clotting. Again hemostasis was checked in the wound using Bovie cautery for superficial hemostasis in the subcutaneous tissues. Following this closure was obtained with 2 layers. I used buried subcutaneous sutures of 3-0 Vicryl in the subcutaneous layer followed by a running subcuticular closure of 4-0 Monocryl [Vicryl]on the skin. Patient tolerated the procedure well. Estimated blood loss was 3 cc Sponge, needle, and instrument counts were correct at the end the procedure and patient was taken to the outpatient recovery area in good condition. Implants none Drains No Packing No Pathology None sent Complications No immediate complications Condition Stable Disposition Same day
--- NOTE | 2022-08-03 16:10 | SUR.PHASEII ---
HYPERVENTILATING FROM ANXIETY PER PATIENT. RESTING ON RECLINER UNTIL SHE FEELS BETTER. SATE 97% ON 3 LITERS OXYGEN PER NC (HOME BASELINE).
--- NOTE | 2022-08-03 16:52 | SUR.PHASEII ---
1630 PATIENT NO LONGER HYPERVENTILATING. STATES SHE'S BACK TO BASELINE.
== END 2022-08-03 16:30 | disposition home or self-care (01) ==
PROVIDERS: PCP Family Medicine; Visit Provider Surgery
PROC: (CPT 36589; principal; 2022-08-03 15:00)
DX: Z45.2 Encounter for adjustment and management of vascular access device (principal); C34.12 Malignant neoplasm of upper lobe, left bronchus or lung; Z92.21 Personal history of antineoplastic chemotherapy; Z92.3 Personal history of irradiation; J44.9 Chronic obstructive pulmonary disease, unspecified; D64.9 Anemia, unspecified; F41.9 Anxiety disorder, unspecified; F31.9 Bipolar disorder, unspecified; F17.210 Nicotine dependence, cigarettes, uncomplicated; F12.90 Cannabis use, unspecified, uncomplicated; Z79.01 Long term (current) use of anticoagulants; Z79.51 Long term (current) use of inhaled steroids; Z86.711 Personal history of pulmonary embolism
CPT/HCPCS: 36590

== ENCOUNTER 2022-09-27 19:09 | Emergency (ER) | payer MEDICARE, SELFPAY ==
[2022-09-27] VITALS (9 sets, daily range): BP systolic 138–180; BP diastolic 75–85; PULSE 89–109; RESP 14–22; TEMP 37.1; O2SAT 92–100
--- NOTE | ~2022-09-27 | CT_ITS ---
EXAMINATION: CTA chest PE protocol DATE: 09/27/2022 21:38 INDICATION: Shortness of breath, history of lung cancer TECHNIQUE: Computed tomography angiography (CTA) of the chest was performed with 100 mL Omnipaque-350 intravenous contrast timed to evaluate the pulmonary arteries. Coronal maximum intensity projection 3D-reconstructions were created by the technologist. The dose-length product (DLP) was 192.34 mGy-cm. Automated exposure control and iterative reconstruction technique were employed. COMPARISON: 06/30/2022 FINDINGS: The pulmonary arteries are well-opacified. No pulmonary embolism is identified. There is se kaiser emphysema. Right upper lobe opacities persist but have decreased. There is now central cavitatio n. There is a new 7 mm nodule in the left upper lobe. There are persistent but improved left perihila r opacities extending to the lung periphery. A subpleural mass of the left upper lobe is stable. No p leural effusion or pneumothorax. A nodule of the right lung apex is stable. The right-sided Port-A-Ca th has been removed. Right hilar lymphadenopathy persists. The heart size is normal. IMPRESSION: 1. No pulmonary embolus identified. 2. Improving right upper lobe opacities, likely infection 3. Stable subpleural mass of the left upper lobe. 4. Stable right hilar lymphadenopathy, reactive versus metastatic. 5. Stable nodule of the right lung apex, concerning for malignancy. Reviewed, dictated and finalized at location F. [employer] DEVELOPER
--- NOTE | ~2022-09-27 | XR_ITS ---
EXAMINATION: XR chest 2V DATE: 09/27/2022 19:53 INDICATION: Shortness of breath, history of lung cancer TECHNIQUE: AP and lateral views of the chest are obtained. COMPARISON: CT, 06/30/2022 FINDINGS: Airspace opacities of the right upper lobe persist but have improved since the comparison C T. There are stable airspace opacities of the left midlung zone. There is severe emphysema. No pleura l effusion or pneumothorax. The heart size is normal. There is moderate thoracic spondylosis. The Por t-A-Cath has been removed. IMPRESSION: 1. Persistent airspace opacities of the left midlung zone which may be infectious or inflammatory. 2. Improving airspace opacities of the left upper lobe, consistent with resolving pneumonia. Reviewed, dictated and finalized at location F. LINER IMPRESSION: 1. Persistent airspace opacities of the left midlung zone which may be infectio us or inflammatory. 2. Improving airspace opacities of the left upper lobe, consistent with resolvi ng pneumonia.
--- NOTE | 2022-09-27 19:15 | ECG_ITS ---
Measurements Intervals [place] Rate: 88 P: 92 WA: 145 QRS: 79 QRSD: 88 T: 114 QT: 324 QTc: 393 Interpretive Statements SINUS RHYTHM RIGHT ATRIAL ENLARGEMENT POSSIBLE LEFT ATRIAL ENLARGEMENT PEAKED T WAVES- CONSIDER HYPERKALEMIA MINIML Q WAVES- INFERIOR LEADS ST-T WAVE ABNORMALITY IN HIGH LATERAL LEADS- CONSIDER ISCHEMIA ABNORMAL ECG COMPARED TO ECG 03/13/2021 08:42:58 [address] NOW PRESENT [address] (T WAVE) DEVIATION NOW PRESENT Electronically Signed On 09-28-2022 6:42:10 MARKET SPECIALIST by Raudel Caraballo D.O.
[2022-09-27 19:54] LABS: Basophils Absolute Auto 0.1 K/mm3 (0.0-0.1); Eosinophils Absolute Auto 0.4 K/mm3 (0-0.3); Eosinophils Percent Auto 6.6 % (0-4.4); Hemoglobin 14.3 g/dL (12.0-15.0); Immature Granulocyte Absolute 0.01 K/mm3 (0.00-0.031); Immature Granulocyte Percent A 0.2 % (0-0.5); Lymphocytes Absolute Auto 1.07 K/mm3 (0.9-3.2); Lymphocytes Percent Auto 17.3 % (18.3-44.2); Mean Corpuscular HGB Conc 32.5 g/dl (32-36); Mean Corpuscular Hemoglobin 31.6 pg (26-34); Mean Corpuscular Volume 97.3 fl (80-100); Mean Platelet Volume 8.6 fl (7.4-10.4); Monocytes Absolute Auto 0.5 K/mm3 (0.1-0.6); Monocytes Percent Auto 8.6 % (2.6-8.5); Neutrophils Absolute Auto 4.1 K/mm3 (1.3-6.7); Neutrophils Percent Auto 66.3 % (45.5-73.1); Platelet Count Result 214 k/mm3 (150-375); Red Blood Count 4.52 M/mm3 (4.2-5.4); Red Cell Distribution Width 12.6 % (11.5-14.5); White Blood Count 6.2 K/mm3 (4.5-10.0)
--- NOTE | 2022-09-27 20:07 | ED.SOB ---
HPI - SOB/Dyspnea General Chief Complaint: Shortness of Breath/Dyspnea Stated Complaint: SOB Time Seen by Provider: 09/27/22 19:48 History of Present Illness HPI Narrative: Pt presents with progressively worsening SOB over the last couple of months. Pt has end stage lung CA and says this all started after she had her port removed 08/03. Pt denies fever. Pt is no longer getting treatment for lung CA. Pt is DNR. Related Data Home Medications Medication Instructions Recorded Confirmed lamotrigine 100 mg tablet 100 mg PO Q12H 11/02/19 09/10/22 hydrocodone 5 mg-acetaminophen 325 1 tablet PO Q4H PRN Pain 07/09/20 09/10/22 mg tablet multivit with minerals-iron 18 1 tablet PO DAILY ##0 09/04/20 09/10/22 mg-folic ac 400 mcg-vit K 25 mcg tablet (Adults Multivitamin) warfarin 5 mg tablet 5 mg PO DAILY 07/29/21 09/10/22 Vitamin C 1 tablet PO DAILY 09/09/21 09/10/22 sertraline 100 mg tablet 100 mg PO HS 07/28/22 09/10/22 Allergies Allergy/AdvReac Type Severity Reaction Status Date / Time No Known Allergies Allergy Verified 09/09/22 14:38 Review of Systems Review of Systems: All systems reviewed & are unremarkable except as noted in HPI and below PMFSH Past Medical History Medical History Anemia Anxiety and depression Bipolar 1 disorder COPD (chronic obstructive pulmonary disease) Malignant neoplasm of upper lobe, left bronchus or lung Surgical History Surgical History H/O tubal ligation History of cholecystectomy Family History Family History Mother Lung cancer Hypertension Father Lung cancer Sibling Ovarian cancer Social History Social History (Updated 09/09/22 @ 15:05 by Cris Sanchez) Social History: The patient is and she is disabled. The patient was smoking 2 packs of cigarettes a day and smoked for 41 years. The patient stated she recently quit smoking then restarted soon after. She occasionally has an alcoholic beverage. She uses marijuana but no illicit drugs. Patient is a DNR and her sister knows what she wants. Although she did not say that her sister was officially the power entry level account representative. The patient has 1 son. The patient stated when it is time she will be ready to go to hospice. Smoking packs per day: 0.75 Smoking cigarettes per day: 15.0 Years smoked: 46 Smoking pack-years: 34.50 Smoking status: Current every day smoker Tobacco type: cigarettes Second hand tobacco smoke exposure: Yes Additional smoking assessment comments: SMOKED 2 PPD X ~15 YEARS Alcohol intake: current Alcohol use details: 3/MONTH Substance use: current Substance use type: marijuana Other substance usage details: EDIBLES, SMOKE Gender identity (if verbalized by the patient): Female Spiritual care concerns: No Exam Const: General: healthy appearing and no acute distress Nutritional Appearance: well nourished Orientation/consciousness: patient oriented x3 Limitations: no limitations HENMT: Head: normal to inspection Face/Nose/Sinus: Normal external nose present Eyes: EOM: EOMs intact bilaterally Chest: Chest palpation & inspection: normal inspection of the chest Resp: Effort & Inspection: labored and tachypneic Auscultation: diminished lung sounds Cardio: Rate: regular rate Rhythm: regular rhythm GI: GI Palp: Yes Soft to palpation Auscultation: normal bowel sounds Skin: General skin exam: normal color Rashes: no rashes Wounds: no wounds Neuro: General: patient oriented x3, moves all extremities, no meningeal signs and no focal motor deficits Cranial nerves: Yes Nystagmus not present Speech: normal speech Extrem: General: normal to inspection and no clubbing, cyanosis or edema Psych: Mental Status: mental status grossly normal Affect: normal affect Attitude: cooperative
[2022-09-27 20:23] LABS: Alanine Aminotransferase 22 U/L (6-35); Albumin Level 4.7 g/dL (3.5-5.1); Alkaline Phosphatase 140 U/L (38-126); Aspartate Amino Transferase 30 U/L (14-36); Bilirubin,Total 0.4 mg/dL (0.2-1.3); Blood Urea Nitrogen 5 mg/dL (7-17); Calcium 9.3 mg/dL (8.4-10.2); Carbon Dioxide 38 mmol/L (22-30); Chloride 89 mmol/L (98-107); Estimated CRCL calculation 112 ml/min; Estimated Glomerular Filt Rate > 60; Glucose 108 mg/dL (65-110); Potassium 4.4 mmol/L (3.4-5.0)
[2022-09-27 20:35] LABS: Anion Gap 12 mmol/L (8-16); Sodium 139 mmol/L (137-145)
[2022-09-27] MEDS: ALBUTEROL SULFATE NEB 2.5 MG/3 ML INH INHALATION (21:39)
== END 2022-09-27 22:45 | disposition home or self-care (01) ==
PROVIDERS: Emergency Provider Emergency Medicine; PCP Family Medicine
DX: C34.12 Malignant neoplasm of upper lobe, left bronchus or lung (principal); J44.9 Chronic obstructive pulmonary disease, unspecified; F41.9 Anxiety disorder, unspecified; F31.9 Bipolar disorder, unspecified; Z66 Do not resuscitate; Z86.2 Personal history of diseases of the blood and blood-forming organs and certain disorders involving the immune mechanism; Z79.01 Long term (current) use of anticoagulants; R94.31 Abnormal electrocardiogram [ECG] [EKG]
CPT/HCPCS: 36415; 71046; 71275; 80053; 85025; 93005; 94640; 99284; Q9967